=== PATIENT | male | born 1975 | race Caucasian/White ===

== ENCOUNTER 2020-03-26 04:29 | Emergency (ER) | payer SELFPAY ==
[2020-03-26 04:33] VITALS: BP 141/95; BP 159/91; PULSE 84; PULSE 90; RESP 16; TEMP 36.9; O2SAT 100; O2SAT 99; BMI 34.0
[2020-03-26 04:34] VITALS: BP 141/95; PULSE 85; RESP 16; TEMP 36.9; O2SAT 100
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
[2020-03-26] MEDS: Acetaminophen 325 MG TABLET 975 MG PO (05:00)
[2020-03-26] MEDS: Ketorolac Tromethamine 15 MG/ML VIAL IM (05:01)
[2020-03-26] MEDS: Cyclobenzaprine HCl 10 MG TABLET PO (05:07)
[2020-03-26] MEDS: Lidocaine 4 % Patch ADH..PATCH 1 PATCH TRANSDERMA (05:08)
[2020-03-26 06:04] LABS: Glucose Urine UA NEG (NEG); Leukocyte Esterase Urine NEG (NEG); Nitrite Urine NEG (NEG); Specific Gravity - Urine 1.025 (1.005-1.025); Urine Blood NEG (NEG); Urine Ketones NEG (NEG); Urine Protein NEG (NEG-TRACE)
[2020-03-26 06:09] LABS: Appearance Urine CLEAR; Color Urine YELLOW; UACC Culture Trigger NO
== END 2020-03-26 06:33 | disposition home or self-care (01) ==
PROVIDERS: Emergency Provider Student in an Organized Health Care Education/Training Program; PCP Internal Medicine
DX: M25.512 Pain in left shoulder (principal); Z79.899 Other long term (current) drug therapy; F12.90 Cannabis use, unspecified, uncomplicated
CPT/HCPCS: 73030; 81003; 99284; J1885

== ENCOUNTER → 2021-08-19 14:36 | Outpatient (BNVA) | payer SELFPAY | PROVIDERS: PCP Internal Medicine; Visit Provider Physician Assistant | DX: Z02.79 Encounter for issue of other medical certificate (principal) ==

== ENCOUNTER → 2022-08-11 14:37 | Outpatient (BNVA) | payer SELFPAY | PROVIDERS: PCP Nurse Practitioner Family; Visit Provider Physician Assistant | DX: Z02.79 Encounter for issue of other medical certificate (principal) ==

== ENCOUNTER 2022-12-14 14:26 | Outpatient (AMB) | payer BC, SELFPAY ==
--- NOTE | 2022-12-14 14:33 | A.OFFVIS_ITS ---
Intake Vital Signs 12/14/22 14:34 Height 5 ft 9 in Weight 289 lb BMI 42.7 BP 162/90 H Blood Pressure Location Lt brachial Position Standing Pulse 106 H Pulse Source Pulse Oximeter Pulse Oximetry (%) 98 Oxygen Delivery Method Room Air Intake Visit Reasons: Obstructive sleep apnea Intake Note: pt is here as a new patient for replacement c-pap from [facility]. 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 sleep study [facility] at [facility]. 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 HE IS KNOWN TO HAVE SEVERE OBSTRUCTIVE SLEEP APNEA FOR THE PAST 10-12 YEARS. POLYSOMNOGRAM STUDY PERFORMED FOR THE 1ST TIME AT [facility] ON 08/11/2011 IS REVIEWED AND INDEED HE HAD VERY SEVERE DEGREE OF OBSTRUCTIVE SLEEP APNEA WITH TOTAL SLEEP TIME AHI OF 89 PER HOUR REM AHI 120 PER PATIENT HAD CPAP TITRATION AND WAS TREATED WELL WITH PRESSURE OF 12 CM. PATIENT CLAIMS THAT SINCE 2011 HE HAS BEEN USING CPAP VERY REGULARLY. HE HAS FULL FACE MASK WHICH HE TOLERATES WELL. 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 HIS CPAP MACHINE IS QUITE OLD, AND DOES NOT HAVE CAPABILITY OF TRANSMITTING THE COMPLIANCE DATA. HE NEEDS NEW UP TO DATE MODEL OF CPAP DEVICE, WITH COMPLIANCE MONITORING CAPABILITY. THE PATIENT HAS BEEN MORBIDLY OBESE THROUGHOUT HIS ADULT LIFE. HE WAS INVOLVED IN, WEIGHT MANAGEMENT PROGRAM AND UNDERWENT GASTRIC SLEEVE MANY YEARS AGO. HE DID LOSE SOME WEIGHT, STILL REMAINING IN THE MORBID OBESITY RANGE. LATELY HE IS ACTUALLY PUTTING ON MORE WEIGHT. HE NEEDS TO USE THE CPAP OTHERWISE HE DOES NOT HAVE GOOD SLEEP. COUNTS INCLUDE 234 BEDS AT THE [facility] Medical History (Updated 12/14/22 @ 16:10 by Sariah Lowry MD) Morbid obesity Vitamin D deficiency Surgical History H/O gastric sleeve Family History Mother No problems noted. Father Myocardial infarction DVT (deep venous thrombosis) H/O heart artery stent Social History Housing: House Alcohol intake: never Patient Tobacco Use Status: Former Tobacco user Quit Date: 7 years ago Tobacco use type: Cigarette e-Cigarette/Vaping Use: Never Used Substance Use Type: Marijuana service: Yes Current occupational status: employed Review of Systems Const All systems reviewed & are unremarkable except as noted in HPI and below Eyes Reports no additional complaints ENT Reports no additional complaints Card Denies chest pain, Denies irregular heart rhythm, Denies leg edema and Denies dyspnea Resp Denies chest congestion, Denies cough, Denies dyspnea and Denies wheezing GI Reports no additional complaints Reports no additional complaints Musc Reports no additional complaints Skin/Breast Reports system reviewed and no additional complaints, except as documented Neuro Reports no additional complaints Psych Reports no additional complaints Endo Reports no additional complaints Kirit/Lymph Reports no additional complaints Aller/Immun Reports no additional complaints and Denies wheezing Physical Exam Vital Signs: Last Vital Signs Pulse 106 H 12/14/22 14:34 BP 162/90 H 12/14/22 14:34 Pulse Ox 98 12/14/22 14:34 Oxygen Delivery Method Room Air 12/14/22 14:34 BMI result Body Mass Index 42.7 Const General: healthy appearing (EXCEPT FOR BEING OVERWEIGHT), comfortable, no acute distress, alert and awake Orientation/consciousness: patient oriented x3 HEENT Head: Yes normal to inspection General nose exam: No nasal polyps present and No nasal discharge present Face and sinus: Yes sinuses nontender Mouth: oropharynx abnormals (OROPHARYNX IS CROWDED, MALLAMPATI CLASS 4) Throat: Yes posterior oropharynx normal Eyes General: appearance normal, both eyes and all related structures Neck Neck: Yes normal visual inspection, Yes no lymphadenopathy, Yes trachea midline, Yes no JVD and Yes other (NECK CIRCUMFERENCE 18 IN) Thyroid: Thyroid normal Resp Effort & Inspection: normal respiratory effort Auscultation: clear to auscultation bilaterally, no crackles and no wheezes Cardio Palpation: normal PMI Rate: regular rate Rhythm: regular rhythm Heart sounds: no gallops and no murmurs Peripheral pulses: Peripheral pulses 2+ throughout GI Palpation (GI): Soft to palpation, nontender, No hepatosplenomegaly present, no masses and Other GI palpation findings present (LARGE UMBILICAL HERNIA) Auscultation: normal bowel sounds Back/Spine/Pelvis Thoracic/Lumbar Spine: thoracic and lumbar spine normal to inspection and thoraco-lumbar ROM limited Skin General skin exam: no rashes or lesions noted Neuro General: patient oriented x3 and no focal motor deficits Cranial nerves: Yes CN's II-XII intact bilaterally Extrem General: Yes normal to inspection, Yes no clubbing, cyanosis or edema and Yes no calf tenderness Psych Appearance: grossly normal and well kempt Speech and movement: Normal speech and movement present Results Reviewed Results Reviewed: REPORT OF POLYSOMNOGRAM STUDY AT [facility] DATED 08/11/2011 WAS REVIEWED. RESULTS DISCUSSED WITH THE PATIENT. CONSISTENT WITH VERY SEVERE OBSTRUCTIVE SLEEP APNEA BUT RESPONDED WELL TO CPAP T TITRATION , PATIENT WAS ADVISED TO USE FULL FACE MASK. AND PRESSURE OF 12 CM Assessment & Plan Assessment & Plan (1) Morbid obesity: Comment: PATIENT HAS HAD MORBID OBESITY THROUGHOUT HIS ADULT LIFE. HE HAS HAD GASTRIC SLEEVE WHICH HELPED HIM TO LOSE WEIGHT FOR A FEW YEARS THEN THEN HE HAS REGAINED THE WEIGHT. ADVISED TO JOIN THE WEIGHT MANAGEMENT PROGRAM AGAIN. Code(s): E66.01 - Morbid (severe) obesity due to excess calories (2) Obstructive sleep apnea: Comment: SEVERE OBSTRUCTIVE SLEEP APNEA UNKNOWN SINCE 2011. HAS BEEN USING CPAP REGULARLY. CURRENTLY HIS CPAP DEVICE IS OLD AND NOT ABLE TO TRANSMIT THE COMPLIANCE DATA. PATIENT NEEDS A NEW, UPDATED WERE BECK OF CPAP DEVICE. SETTING WILL BE : FULLFACE MASK WITH PRESSURE OF 12 CM. Code(s): G47.33 - Obstructive sleep apnea (adult) (pediatric) Coding Level of Care Code New Pt Level 3 (43308) Diagnoses Morbid obesity E66.01 Obstructive sleep apnea G47.33
[2022-12-14 14:34] VITALS: BP 162/90; PULSE 106; O2SAT 98; BMI 42.7
== END 2022-12-14 15:02 | disposition home or self-care (01) ==
PROVIDERS: PCP Nurse Practitioner Family; Visit Provider Internal Medicine
DX: E66.01 Morbid (severe) obesity due to excess calories (principal); G47.33 Obstructive sleep apnea (adult) (pediatric)
CPT/HCPCS: 99203

== ENCOUNTER → 2022-12-14 14:26 | Outpatient (BNVA) | payer BC, SELFPAY | PROVIDERS: PCP Nurse Practitioner Family; Visit Provider Internal Medicine ==

== ENCOUNTER 2022-12-30 14:26 | Outpatient (AMB) | payer BC, SELFPAY ==
[2022-12-30 14:27] VITALS: BP 148/100; PULSE 92; O2SAT 98; BMI 42.1
--- NOTE | 2022-12-30 14:27 | A.OFFPC_ITS ---
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 Allergies No Known Allergies [No Known Allergies*] Allergy (Verified 12/30/22 14:31) Tobacco use date assessed: 12/30/22 Dental Screening Dental Screen Date: 12/30/22 Did you have a dental visit in the last 12 months?: Yes Did you have a dental problem in the last 6 months where you did not have access to dental care?: No Was dental information given to patient?: Patient has dentist HPI HPI Comments History of Present Illness Details 47-year-old male past medical history significant for hypertension, hypertriglyceridemia, vitamin-D deficiency, lumbar degenerative disc disease, obstructive sleep apnea and dyslipidemia.Patient presents today for physical exam. Patient states used his cpap nightly with good effect. Patient b/p elevated in office today 148/100 and noted elveated at pulmonolgy appointment earlier this month 162/90. Patient denies chest pain, palpitations, shortness of breath and syncope. Patient reports was previously on blood pressure medication years ago, but it was able to be D/C'd. Past records looked up patient was previously on atenolol 20 mg daily. Discussed with patient restarting this medication and following up in 2 weeks with navigation or stab blood pressure a checked. Colonoscopy:patient states has never had colonoscopy, Referral entered in september Tdap: 07/14/17 Eye Exam: Couple of months ago, patient now requiring glasses. Patient reminded to get previously ordered fasting blood work completed. ? [facility] Medical History Morbid obesity Vitamin D deficiency Surgical History H/O gastric sleeve Family History Mother No problems noted. Father Myocardial infarction DVT (deep venous thrombosis) H/O heart artery stent Social History Housing: House Alcohol intake: never Patient Tobacco Use Status: Former Tobacco user Quit Date: 7 years ago Tobacco use type: Cigarette e-Cigarette/Vaping Use: Never Used Substance Use Type: Marijuana service: Yes Current occupational status: employed Cognitive needs: No Hearing needs: No Vision needs: No Questionnaire PHQ-9 Over the last 2 weeks, how often have you been bothered by any of the following problems? 1. Little interest or pleasure in doing things: not at all 2. Feeling down, depressed, or hopeless: nearly every day 3. Trouble falling or staying asleep, or sleeping too much: not at all 4. Feeling tired or having little energy: not at all 5. Poor appetite or overeating: not at all 6. Feeling bad about yourself - or that you are a failure or have let yourself or your family down: not at all 7. Trouble concentrating on things, such as reading the newspaper or watching television: not at all 8. Moving or speaking so slowly that other people could have noticed. Or the opposite - being so fidgety or restless that you have been moving around a lot more than usual: not at all 9. Thoughts that you would be better off or of hurting yourself in some way: not at all Total score: 3 Depression Screening Interpretation: Positive [id number] - PHQ-9 Billing: Yes Source: Developed by Drs. Satnam Mchugh, Isabella Jackson, Brain Spence and colleagues, with an educational luciana from [employer]. Thrive Questionnaire Date Thrive assessed: 12/30/22 I am a: Patient What is your living situation today?: I have a steady place to live Within the past 12 months, did the food you bought not last and you didn't have the money to get more?: Never true Within the past 12 months, did you worry whether your food would run out before you got money to buy more?: Never true Do you have trouble paying for medicines?: No Do you have trouble getting transportation to medical appointments?: No Do you have trouble paying your heating and electricity bill?: No Do you have trouble taking care of your child, family member or friend?: No Do you have trouble with day-to-day activities such as bathing, preparing meals, shopping, managing finances, etc.?: No AUDIT C Alcohol Use Questionnaire (AUDIT-C) 1. How often do you have a drink containing alcohol?: Never Total Score: 0 PRINCESS-7 AMB Questionnaire PRINCESS-7 Date PRINCESS - 7 assessed: 12/30/22 Feeling nervous, anxious, or on edge: 3 = Nearly every day Not being able to stop or control worryin = Nearly every day Worrying too much about different things: 3 = Nearly every day Trouble relaxin = Not at all Being so restless that it is hard to sit still: 0 = Not at all Becoming easily annoyed or irritable: 3 = Nearly every day Feeling afraid as if something awful might happen: 0 = Not at all Total PRINCESS-7 score (0-4 normal; 5-9 mild; 10-14 moderate; 15-21 severe): 12 Source: Developed by Drs. Satnam Mchugh, Isabella Jackson, Brain Spence and colleagues, with an educational luciana from [employer]. PRINCESS-7 Assessment Billing PRINCESS-7 Assessment Tool: PRINCESS-7 Assessment [id number] Review of Systems Const Denies chills, Denies fatigue, Denies fever(s) and Denies poor appetite Eyes Denies no additional complaints ENT Reports Normal hearing present Card Denies chest pain, Denies syncope, Denies rapid heart rate and Denies dyspnea Resp Denies cough and Denies dyspnea GI Denies change in stool character, Denies constipation, Denies diarrhea, Denies nausea and Denies vomiting Denies dysuria, Denies urinary frequency and Denies urinary urgency Neuro Reports Normal hearing present, Denies confusion and Denies syncope Psych Denies confusion Endo Denies fatigue Physical exam (Primary Care) Vital Signs: Last Vital Signs Pulse 92 12/30/22 14:27 BP 148/100 H 12/30/22 14:27 Pulse Ox 98 12/30/22 14:27 Oxygen Delivery Method Room Air 12/30/22 14:27 BMI result Body Mass Index 42.1 Tobacco/Smoking Status: Tobacco use Status Tobacco use date assessed 12/30/22 12/30/22 14:35 Patient Tobacco Use Status Former Tobacco user 12/30/22 14:35 Tobacco use type Cigarette 12/30/22 14:35 e-Cigarette/Vaping Use Never Used 12/30/22 14:35 PHQ-9: PHQ-9 Score PHQ-9: Total score 3 12/30/22 14:35 Depression Screening Interpretation: Positive Thrive Assessment: Date of Thrive Assessment Date Thrive assessed 12/30/22 12/30/22 14:35 Const General: No confusion Orientation/consciousness: No confusion HENMT Head: Yes normocephalic and Yes atraumatic Ears: external ears normal and TM's normal bilaterally General nose exam: Normal external nose present and Normal nasal mucous membranes and turbinates present Face and sinus: Yes normal facial exam and Yes sinuses nontender Mouth: moist mucous membranes Throat: Yes tonsils normal Eyes Conjunctivae: conjunctivae normal Sclerae: sclerae normal Pupils: Equal, round and reactive pupils present and Pupils normal by confrontation EOM: EOMs intact bilaterally Direct Ophthalmoscopy: normal light reflex Neck Neck: Yes no lymphadenopathy and Yes supple Thyroid: Thyroid normal Chest Chest palpation & inspection: normal inspection of the chest Resp Effort & Inspection: normal respiratory effort Auscultation: clear to auscultation bilaterally, no crackles, no rhonchi and no wheezes Cardio Rate: regular rate Rhythm: regular rhythm Peripheral pulses: radial pulses present and dorsalis pedis present GI Inspection: Yes normal to inspection Palpation (GI): Soft to palpation, nontender and No hepatosplenomegaly present Auscultation: normoactive bowel sounds Skin General skin exam: no rashes or lesions noted Neuro General: No confusion Cranial nerves: Yes Equal, round and reactive pupils present and Yes Normal hearing present Cognition (Neuro): normal cognition Gait exam (Neuro): Normal gait present Motor exam (neuro): 5/5 motor strength present throughout Deep tendon reflexes (DTR's): Right brachioradialis reflex intensity grade: 2+, Left brachioradialis reflex intensity grade: 2+, Right patellar reflex intensity grade: 2+ and Left patellar reflex intensity grade: 2+ Extrem General: No edema Assessment and Plan Assessment & Plan (1) Hypertension: Code(s): I10 - Essential (primary) hypertension Plan: Patient agreeable to restarting atenolol 25 mg daily. Follow low-salt diet and exercise. Follow-up in 2 weeks and navigation nurse for blood pressure recheck. (2) Obstructive sleep apnea: Comment: SEVERE OBSTRUCTIVE SLEEP APNEA UNKNOWN SINCE 2011. HAS BEEN USING CPAP REGULARLY. CURRENTLY HIS CPAP DEVICE IS OLD AND NOT ABLE TO TRANSMIT THE COMPLIANCE DATA. PATIENT NEEDS A NEW, UPDATED WERE BECK OF CPAP DEVICE. SETTING WILL BE : FULLFACE MASK WITH PRESSURE OF 12 CM. Code(s): G47.33 - Obstructive sleep apnea (adult) (pediatric) Plan: Continue to follow with pulmonology. Continue wear CPAP for greater than 4 hours a night with good effect. Patient reports in the process of getting a new CPAP machine. (3) Dyslipidemia: Code(s): E78.5 - Hyperlipidemia, unspecified Plan: Patient advised to get fasting lipid panel completed. Follow low-cholesterol diet. (4) Morbid obesity: Comment: PATIENT HAS HAD MORBID OBESITY THROUGHOUT HIS ADULT LIFE. HE HAS HAD GASTRIC SLEEVE WHICH HELPED HIM TO LOSE WEIGHT FOR A FEW YEARS THEN THEN HE HAS REGAINED THE WEIGHT. ADVISED TO JOIN THE WEIGHT MANAGEMENT PROGRAM AGAIN. Code(s): E66.01 - Morbid (severe) obesity due to excess calories Plan: Diet and exercise to reduce BMI. (5) Physical exam, annual: Code(s): Z00.00 - Encounter for general adult medical examination without abnormal findings Plan: Follow up in 1 year. Plan Follow up in 3 months Medications: New atenolol 25 mg PO DAILY 30 tabs 3RF I10 - Essential (primary) hypertension Coding Level of Care Code Est Pt Prev Care 40-64y(34080) Diagnoses Hypertension I10 Obstructive sleep apnea G47.33 Dyslipidemia E78.5 Morbid obesity E66.01 Physical exam, annual Z00.00 Additional Codes PRINCESS-7 Assessment Billing - PRINCESS-7 Assessment Tool: PRINCESS-7 Assessment [id number] ([id number])
== END 2022-12-30 15:02 | disposition home or self-care (01) ==
PROVIDERS: PCP Nurse Practitioner Family; Visit Provider Nurse Practitioner Family
DX: Z00.00 Encounter for general adult medical examination without abnormal findings (principal); I10 Essential (primary) hypertension; E66.01 Morbid (severe) obesity due to excess calories; Z68.41 Body mass index [BMI] 40.0-44.9, adult; G47.33 Obstructive sleep apnea (adult) (pediatric); E78.5 Hyperlipidemia, unspecified
CPT/HCPCS: 99396

== ENCOUNTER 2022-12-31 08:45 | Outpatient (REF) | payer BC, SELFPAY ==
[2022-12-31 09:15] LABS: MANUAL DIFF FLAG NO
[2022-12-31 09:48] LABS: Basophils Absolute Auto 0.1 X10*3/uL (0.0-0.2); Basophils Percent Auto 0.6 % (0-2); Eosinophils Absolute Auto 0.2 X10*3/uL (0.0-0.4); Eosinophils Percent Auto 2.8 % (0-4); Hematocrit 46.8 % (42.0-52.0); Hemoglobin 15.9 g/dl (14.0-18.0); Imm Gran Abs Auto 0.04 X10*3/uL (0.00-0.03); Imm Gran Pct Auto 0.5 % (0.0-0.4); Lymphocytes Absolute Auto 2.8 X10*3/uL (1.2-4.9); Lymphocytes Percent Auto 36.2 % (20-40); Mean Corpuscular Hemoglobin 27.9 pg (27.0-33.0); Mean Corpuscular Volume 82.1 fL (80.0-98.0); Mean Platelet Volume 9.3 fL (9.4-12.4); Monocytes Absolute Auto 0.6 X10*3/uL (0.1-1.2); Monocytes Percent Auto 7.7 % (2-11); Neutrophils Percent Auto 52.2 % (45-73); Platelet Count 285 X10*3/uL (160-400); Red Cell Distribution Width 12.8 % (11.0-16.0); White Blood Count 7.8 X10*3/uL (4.8-10.8)
[2022-12-31 10:29] LABS: Alanine Aminotransferase 19 U/L (0-40); Albumin Level 4.3 g/dL (3.5-5.0); Alkaline Phosphatase 86 U/L (39-117); Anion Gap 17 (12-20); Aspartate Amino Transferase 13 U/L (5-37); Bilirubin Total 0.9 mg/dL (0.0-1.0); Blood Urea Nitrogen 9 mg/dL (9-16); Calcium 9.6 mg/dL (8.4-10.2); Carbon Dioxide 21 mmol/L (22-29); Chloride 105 mmol/L (96-108); Cholesterol 162 mg/dL; Estimated Glomerular Filt Rate > 60; Glucose Random 98 mg/dL (60-115); HDL Cholesterol 40 mg/dL; LDL Cholesterol Calculated 98 mg/dl; Potassium 4.1 mmol/L (3.3-5.1); Sodium 139 mmol/L (135-145); Total Protein 7.7 g/dL (6.5-8.0); Triglycerides 120 mg/dL
[2022-12-31 10:47] LABS: TSH reflex Free T4 1.18 uIU/mL (0.32-4.0)
== END 2022-12-31 08:46 | disposition home or self-care (01) ==
LOC: HO.LAB 08:45
PROVIDERS: PCP Internal Medicine; Visit Provider Nurse Practitioner Family
DX: E78.5 Hyperlipidemia, unspecified (principal); Z13.29 Encounter for screening for other suspected endocrine disorder; Z13.0 Encounter for screening for diseases of the blood and blood-forming organs and certain disorders involving the immune mechanism; Z13.220 Encounter for screening for lipoid disorders
CPT/HCPCS: 36415; 80053; 80061; 84443; 85025

== ENCOUNTER 2023-04-17 14:19 | Outpatient (AMB) | payer BC, SELFPAY ==
--- NOTE | 2023-04-17 14:23 | A.OFFPC_ITS ---
Vital Signs 04/17/23 14:25 Height 5 ft 9 in Weight 288 lb BMI 42.5 BP 118/74 Blood Pressure Location Lt brachial Position Sitting Pulse 67 Pulse Source Pulse Oximeter Pulse Oximetry (%) 98 Oxygen Delivery Method Room Air Intake Visit Reasons: HTN, dyslipidemia,KRISTOFER Intake Note: Patient is here to follow up on HTN, KRISTOFER, Dyslipidemia. Rn Relief Charge Required: No Data Modeling Specialist: Not Required per policy Accompanied by: Self / Same As Patient Allergies No Known Allergies [No Known Allergies*] Allergy (Verified 04/17/23 14:25) Tobacco use date assessed: 04/17/23 Dental Screening Dental Screen Date: 04/17/23 Did you have a dental visit in the last 12 months?: Yes Did you have a dental problem in the last 6 months where you did not have access to dental care?: No Was dental information given to patient?: Patient has dentist HPI HPI Comments History of Present Illness Details 48-year-old male past medical history si gnificant for hypertension, hypertriglyceridemia, vitamin-D deficiency, lumbar degenerativedisc disease, obstructive sleep apnea and dyslipidemia. Patient was seen in December, presents today for follow-up appointment. Blood pressure below goal in office today. Patient continues to use CPAP for greater than 4 hours a night with good effect. Patient follows with pulmonology. Patient enquiring about Ozempic injections for weight loss management. Patient history of laparoscopic sleeve gastrectomy in 2019, however he has gained the weight back BMI 42.5 kg. Discussed potential side effects with patient of medication, especially once more tired to patients with history of laparoscopic sleeve gastrectomy such as nausea and delayed gastric emptying. [facility] Medical History Morbid obesity Vitamin D deficiency Surgical History H/O gastric sleeve Family History Mother No problems noted. Father Myocardial infarction DVT (deep venous thrombosis) H/O heart artery stent Social History Housing: House Alcohol intake: never Patient Tobacco Use Status: Former Tobacco user Quit Date: 7 years ago Tobacco use type: Cigarette e-Cigarette/Vaping Use: Never Used Second Hand Smoke Exposure: No Substance Use Type: Marijuana service: Yes Current occupational status: employed Cognitive needs: No Hearing needs: No Vision needs: Yes (glasses) Questionnaire Thrive Questionnaire Date Thrive assessed: 12/30/22 PRINCESS-7 AMB Questionnaire PRINCESS-7 Date PRINCESS - 7 assessed: 12/30/22 Source: Developed by Drs. Satnam Mchugh, Isabella Jackson, Brain Spence and colleagues, with an educational luciana from [employer]. Review of Systems Const Denies chills, Denies fatigue, Denies fever(s) and Denies poor appetite Eyes Denies no additional complaints ENT Reports Normal hearing present Card Denies chest pain, Denies syncope, Denies rapid heart rate and Denies dyspnea Resp Denies cough and Denies dyspnea GI Denies change in stool character, Denies constipation, Denies diarrhea, Denies nausea and Denies vomiting Denies dysuria, Denies urinary frequency and Denies urinary urgency Neuro Reports Normal hearing present, Denies confusion and Denies syncope Psych Denies confusion Endo Denies fatigue Physical exam (Primary Care) BMI result Body Mass Index 42.5 Tobacco/Smoking Status: Tobacco use Status Tobacco use date assessed 04/17/23 04/17/23 14:26 Patient Tobacco Use Status Former Tobacco user 04/17/23 14:26 Tobacco use type Cigarette 04/17/23 14:26 e-Cigarette/Vaping Use Never Used 04/17/23 14:26 Thrive Assessment: Date of Thrive Assessment Date Thrive assessed 12/30/22 04/17/23 14:26 Const General: No confusion Orientation/consciousness: No confusion HENMT Head: Yes normocephalic and Yes atraumatic Eyes Conjunctivae: conjunctivae normal Chest Chest palpation & inspection: normal inspection of the chest Resp Effort & Inspection: normal respiratory effort Auscultation: clear to auscultation bilaterally, no crackles, no rhonchi and no wheezes Cardio Rate: regular rate Rhythm: regular rhythm Heart sounds: S1 normal heart sound present and S2 normal heart sound present GI Inspection: Yes normal to inspection Neuro General: No confusion Cranial nerves: Yes Normal hearing present Extrem General: No edema Assessment and Plan Assessment & Plan (1) Hypertension: Code(s): I10 - Essential (primary) hypertension Plan: Continue on atenolol 25 mg daily. Follow low-salt diet and exercise. (2) Obstructive sleep apnea: Comment: SEVERE OBSTRUCTIVE SLEEP APNEA UNKNOWN SINCE 2011. HAS BEEN USING CPAP REGULARLY. CURRENTLY HIS CPAP DEVICE IS OLD AND NOT ABLE TO TRANSMIT THE COMPLIANCE DATA. PATIENT NEEDS A NEW, UPDATED WERE BECK OF CPAP DEVICE. SETTING WILL BE : FULLFACE MASK WITH PRESSURE OF 12 CM. Code(s): G47.33 - Obstructive sleep apnea (adult) (pediatric) Plan: Patient reports wear CPAP 8 hours a night and benefits from this. Continue to follow-up pulmonology. (3) Dyslipidemia: Code(s): E78.5 - Hyperlipidemia, unspecified Plan: Will repeat fasting lipid panel in 3 months. Avoid fried foods, chicken skin, eggs, butter,margarine, pastries and?? red meat. Plan Follow-up in 6 months or sooner if needed. Orders: Orders Lipid Panel Today E78.5 - Hyperlipidemia, unspecified Comprehensive [place]. Panel Fast Today E78.5 - Hyperlipidemia, unspecified, I10 - Essential (primary) hypertension Coding Level of Care Code Est Pt Level 3 (81593) Diagnoses Hypertension I10 Obstructive sleep apnea G47.33 Dyslipidemia E78.5
[2023-04-17 14:25] VITALS: BP 118/74; PULSE 67; O2SAT 98; BMI 42.5
== END 2023-04-17 14:47 | disposition home or self-care (01) ==
PROVIDERS: PCP Nurse Practitioner Family; Visit Provider Nurse Practitioner Family
DX: I10 Essential (primary) hypertension (principal); G47.33 Obstructive sleep apnea (adult) (pediatric); E78.5 Hyperlipidemia, unspecified
CPT/HCPCS: 99213

== ENCOUNTER → 2023-08-10 14:48 | Outpatient (BNVA) | payer SELFPAY | PROVIDERS: PCP Internal Medicine; Visit Provider Physician Assistant Medical | DX: Z02.79 Encounter for issue of other medical certificate (principal) ==

== ENCOUNTER 2023-10-16 14:40 | Outpatient (AMB) | payer BC, SELFPAY ==
[2023-10-16 14:42] VITALS: BP 150/102; PULSE 88; O2SAT 98; BMI 43.1
--- NOTE | 2023-10-16 14:42 | A.OFFPC_ITS ---
Vital Signs 10/16/23 14:42 10/16/23 15:35 Height 5 ft 9 in Weight 292 lb BMI 43.1 BP 150/102 H 160/104 H Blood Pressure Location Lt brachial Lt brachial Position Sitting Sitting Pulse 88 Pulse Source Pulse Oximeter Pulse Oximetry (%) 98 Oxygen Delivery Method Room Air Intake Visit Reasons: HTN, KRISTOFER, HLD Follow up [employer] Crewmember Required: No Account Services Coordinator: Not Required per policy Accompanied by: Self / Same As Patient Allergies No Known Allergies [No Known Allergies*] Allergy (Verified 03/03/24 16:33) Medication List - Last Reconciled 10/16/23 by Zuhair Almaguer MD atenolol 25 mg PO DAILY Tobacco use date assessed: 10/16/23 Dental Screening Dental Screen Date: 10/16/23 Did you have a dental visit in the last 12 months?: Yes Did you have a dental problem in the last 6 months where you did not have access to dental care?: No Was dental information given to patient?: Patient has dentist HPI HTN, KRISTOFER, HLD Follow up HPI Details Patient comes in today for his follow up visit - was last seen by me almost 5 years ago on 03/29/2019 He has been seeing Kayla Walton, who is no longer with the practice, over the past year when he came back last year to reestablish care States that he has been experiencing increased anxiety lately and he thinks that this is also causing his blood pressure to go up He has been on Atenolol for a while now but he does not think that it has helped his blood pressure much He denies any headaches or dizziness Denies any chest pains, no SOB No nausea/vomiting, no abdominal pain No change in bowel habits noted [facility] Medical History (Updated 03/03/24 @ 16:50 by Zuhair Almaguer MD) Morbid obesity with BMI of 40.0-44.9, adult Lumbar degenerative disc disease Renal calculus, left Obstructive sleep apnea Essential hypertension Morbid obesity Vitamin D deficiency Surgical History (Updated 03/03/24 @ 16:43 by Zuhair Almaguer MD) S/P laparoscopic sleeve gastrectomy H/O gastric sleeve Family History (Updated 03/03/24 @ 16:43 by Zuhair Almaguer MD) Mother Hypertension Father Myocardial infarction DVT (deep venous thrombosis) H/O heart artery stent Hypertension Diabetes mellitus Social History Housing: House Alcohol intake: never Patient Tobacco Use Status: Former Tobacco user Tobacco use type: Cigarette e-Cigarette/Vaping Use: Never Used Second Hand Smoke Exposure: No Substance Use Type: Marijuana service: Yes Current occupational status: employed 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 1. Little interest or pleasure in doing things: several days 2. Feeling down, depressed, or hopeless: nearly every day 3. Trouble falling or staying asleep, or sleeping too much: not at all 4. Feeling tired or having little energy: several days 5. Poor appetite or overeating: several days 6. Feeling bad about yourself - or that you are a failure or have let yourself or your family down: nearly every day 7. Trouble concentrating on things, such as reading the newspaper or watching television: not at all 8. Moving or speaking so slowly that other people could have noticed. Or the opposite - being so fidgety or restless that you have been moving around a lot more than usual: nearly every day 9. Thoughts that you would be better off or of hurting yourself in some way: not at all Total score: 12 Depression Screening Interpretation: Positive Depression Screening Follow-up: Existing condition and New Medication prescribed Depression Screening Done: Yes 49169 - PHQ-9 Billing: Yes Source: Developed by Drs. Satnam Mchugh, Isabella Jackson, Brain Spence and colleagues, with an educational luciana from [employer]. Thrive Questionnaire Date Thrive assessed: 10/16/23 I am a: Patient What is your living situation today?: I have a steady place to live Within the past 12 months, did the food you bought not last and you didn't have the money to get more?: Never true Within the past 12 months, did you worry whether your food would run out before you got money to buy more?: Never true Do you have trouble paying for medicines?: No Do you have trouble getting transportation to medical appointments?: No Do you have trouble paying your heating and electricity bill?: No Do you have trouble taking care of your child, family member or friend?: No Do you have trouble with day-to-day activities such as bathing, preparing meals, shopping, managing finances, etc.?: No Are you currently unemployed and looking for a job?: No Are you interested in more education?: No Please select the resources that you would like help with: None Currently or been in a relationship where the following occur: no concerns reported THRIVE Score: 0 AUDIT C Alcohol Use Questionnaire (AUDIT-C) 1. How often do you have a drink containing alcohol?: Never 3. How often do you have six or more drinks on one occasion?: Never Total Score: 0 Score Reviewed/Action Taken: Yes PRINCESS-7 AMB Questionnaire PRINCESS-7 Date PRINCESS - 7 assessed: 10/16/23 Feeling nervous, anxious, or on edge: 0 = Not at all Not being able to stop or control worryin = Not at all Worrying too much about different things: 0 = Not at all Trouble relaxin = Not at all Being so restless that it is hard to sit still: 0 = Not at all Becoming easily annoyed or irritable: 0 = Not at all Feeling afraid as if something awful might happen: 0 = Not at all Total PRINCESS-7 score (0-4 normal; 5-9 mild; 10-14 moderate; 15-21 severe): 0 Source: Developed by Drs. Satnam Mchugh, Isabella Jackson, Brain Spence and colleagues, with an educational luciana from [employer]. Review of Systems Const Denies chills, Denies fatigue, Denies fever(s) and Denies headache(s) ENT Denies dysphagia, Denies dizziness, Denies otalgia, Denies headache(s), Denies neck pain, Denies odynophagia and Denies sore throat Card Denies chest pain, Denies palpitations and Denies dyspnea Resp Denies cough and Denies dyspnea GI Denies abdominal pain, Denies constipation, Denies dysphagia, Denies heartburn, Denies diarrhea, Denies nausea, Denies odynophagia and Denies vomiting Denies dysuria, Denies nocturia and Denies urinary frequency Musc Reports back pain (over the lower back), Denies arthralgias and Denies neck pain Skin/Breast Denies rash Neuro Denies dizziness and Denies headache(s) Psych Reports anxiety Endo Denies fatigue and Denies palpitations Physical exam (Primary Care) Vital Signs: Last Vital Signs Pulse 88 10/16/23 14:42 BP 160/104 H 10/16/23 15:35 Pulse Ox 98 10/16/23 14:42 Oxygen Delivery Method Room Air 10/16/23 14:42 BMI result Body Mass Index 43.1 Tobacco/Smoking Status: Tobacco use Status Tobacco use date assessed 10/16/23 10/16/23 14:44 Patient Tobacco Use Status Former Tobacco user 10/16/23 14:44 Tobacco use type Cigarette 10/16/23 14:44 e-Cigarette/Vaping Use Never Used 10/16/23 14:44 PHQ-9: PHQ-9 Score PHQ-9: Total score 12 10/16/23 15:43 Depression Screening Interpretation: Positive Depression Screening Follow-up: Existing condition and New Medication prescribed Thrive Assessment: Date of Thrive Assessment Date Thrive assessed 10/16/23 10/16/23 14:44 Currently or been in a relationship where the following occur: no concerns reported Const General: no acute distress and alert HENMT Ears: TM's normal bilaterally and EAC's normal Throat: Yes posterior oropharynx normal and Yes tonsils normal (no TP congestion) Neck Neck: Yes no lymphadenopathy and Yes supple Thyroid: Thyroid normal Resp Auscultation: clear to auscultation bilaterally, no rales and no wheezes Cardio Rate: regular rate Rhythm: regular rhythm Heart sounds: no murmurs GI Palpation (GI): Soft to palpation and nontender Auscultation: normal bowel sounds General: Yes no CVA tenderness Back/Spine/Pelvis Back: no CVA tenderness Thoracic/Lumbar Spine: lumbar spinal tenderness (mild) Skin Rashes: no rashes Extrem General: Yes no clubbing, cyanosis or edema Assessment and Plan Assessment & Plan (1) Essential hypertension: Code(s): I10 - Essential (primary) hypertension Plan: Reinforced low sodium diet - goal is systolic BP of 120 mm or less Will switch him out from Atenolol to Losartan 50 mg QD Patient is reminded to continue monitoring his blood pressure regularly (2) Dyslipidemia: Code(s): E78.5 - Hyperlipidemia, unspecified Plan: He has not had any labs done since December 2022 Reinforced low cholesterol diet Will recheck his labs and fasting lipids in 3 months for follow up (3) Obstructive sleep apnea: Comment: SEVERE OBSTRUCTIVE SLEEP APNEA UNKNOWN SINCE 2011. HAS BEEN USING CPAP REGULARLY. CURRENTLY HIS CPAP DEVICE IS OLD AND NOT ABLE TO TRANSMIT THE COMPLIANCE DATA. PATIENT NEEDS A NEW, UPDATED WERE BECK OF CPAP DEVICE. SETTING WILL BE : FULLFACE MASK WITH PRESSURE OF 12 CM. Code(s): G47.33 - Obstructive sleep apnea (adult) (pediatric) Plan: Continue using his CPAP device when sleeping at night Follow up with Sleep Medicine as scheduled (4) Vitamin D deficiency: Code(s): E55.9 - Vitamin D deficiency, unspecified Plan: Will recheck his Vitamin D level in 3 months for follow up (5) Lumbar degenerative disc disease: Code(s): M51.36 - Other intervertebral disc degeneration, lumbar region Plan: Reinforced activity and weight-lifting restrictions to avoid aggravating his low back pain Lumbar spine x-rays last done in 2018 revealed (+) mild degenerative changes at L4-L5 and L5-S1 (6) Anxiety: Code(s): F41.9 - Anxiety disorder, unspecified Plan: Will start him on Sertraline 25 mg QD Will also refer him to psychiatry for counseling and therapy (7) Morbid obesity with BMI of 40.0-44.9, adult: Code(s): E66.01 - Morbid (severe) obesity due to excess calories; Z68.41 - Body mass index [BMI] 40.0-44.9, adult Plan: Reinforced activity and weight-lifting restrictions He has failed bariatric surgery (has sleeve gastrectomy in 2019) and has been advised to try checking back with Dr. Pavon for further recommendations Plan Follow up in 3 months Orders: Orders Comprehensive [place]. Panel Fast 3 Months E78.00 - Pure hypercholesterolemia, unspecified UA CC w/rflx Micro + Cult 3 Months R30.0 - Dysuria Vitamin D 25-OH Total 3 Months E55.9 - Vitamin D deficiency, unspecified Complete Blood Count Auto Diff 3 Months D64.9 - Anemia, unspecified Lipid Panel 3 Months E78.00 - Pure hypercholesterolemia, unspecified TSH reflex Free T4 3 Months E78.00 - Pure hypercholesterolemia, unspecified Referrals Psychiatry Referral F41.9 - Anxiety disorder, unspecified Medications: New sertraline 25 mg PO DAILY 90 tabs 1RF 90 days losartan 50 mg PO DAILY 90 tabs 1RF 90 days I10 - Essential (primary) hypertension Discontinued atenolol Discontinued Reason: Doctor's Order 25 mg PO DAILY 90 tabs 1RF I10 - Essential (primary) hypertension Coding Level of Care Code Est Pt Level 4 (59015) Diagnoses Essential hypertension I10 Dyslipidemia E78.5 Obstructive sleep apnea G47.33 Vitamin D deficiency E55.9 Lumbar degenerative disc disease M51.36 Anxiety F41.9 Morbid obesity with BMI of 40.0-44.9, adult E66.01; Z68.41
[2023-10-16 15:35] VITALS: BP 160/104
== END 2023-10-16 15:46 | disposition home or self-care (01) ==
PROVIDERS: PCP Internal Medicine; Visit Provider Internal Medicine
DX: I10 Essential (primary) hypertension (principal); E78.5 Hyperlipidemia, unspecified; G47.33 Obstructive sleep apnea (adult) (pediatric); E55.9 Vitamin D deficiency, unspecified; M51.36 Other intervertebral disc degeneration, lumbar region; F41.9 Anxiety disorder, unspecified; E66.01 Morbid (severe) obesity due to excess calories; Z68.41 Body mass index [BMI] 40.0-44.9, adult
CPT/HCPCS: 99499

== ENCOUNTER 2024-01-02 15:01 | Outpatient (AMB) | payer OTHER, BC, SELFPAY ==
--- NOTE | 2024-01-02 15:18 | AM.OFFWIN_ITS ---
Intake Vital Signs 01/02/24 15:19 Height 5 ft 9 in Weight 285 lb BMI 42.1 BP 118/78 Blood Pressure Location Lt radial Position Sitting Pulse 91 Pulse Source Pulse Oximeter Temp 98.3 F Temp Source Oral Pulse Oximetry (%) 98 Oxygen Delivery Method Room Air Intake Visit Reasons: left knee - injured at work Intake Note: pt c/o LT knee pain. Hyper-extended at work this morning Patient Tobacco Use Status: Former Tobacco user Allergies No Known Allergies [No Known Allergies*] Allergy (Verified 01/02/24 15:18) Do you need a note to return to daycare/school/sports/work: Yes HPI HPI Comments History of Present Illness Details 48-year-old male presents today complain ing of left knee pain after a fall at work. He has pain on the medial aspect of his knee has a moderate effusion and hears crunching in his knee. He is able to ambulate but feels a little unsteady. [facility] Medical History (Updated 01/02/24 @ 15:40 by BLAKE Hernandez) Essential hypertension Morbid obesity Vitamin D deficiency Surgical History H/O gastric sleeve Family History Mother No problems noted. Father Myocardial infarction DVT (deep venous thrombosis) H/O heart artery stent Social History Housing: House Alcohol intake: never Patient Tobacco Use Status: Former Tobacco user Tobacco use type: Cigarette e-Cigarette/Vaping Use: Never Used Second Hand Smoke Exposure: No Substance Use Type: Marijuana service: Yes Current occupational status: employed Cognitive needs: No Hearing needs: No Vision needs: Yes (glasses) Review of Systems Const All systems reviewed & are unremarkable except as noted in HPI and below Physical Exam Const General: healthy appearing and no acute distress Extrem General: Yes edema Left lower extremity: knee Details: abnormal to inspection, tenderness, swelling, abnormal ROM and knee ligament exam abnormal Details: valgus stress test Assessment & Plan Assessment & Plan (1) Medial collateral ligament sprain of knee: Code(s): S83.419A - Sprain of medial collateral ligament of unspecified knee, initial encounter Plan: The patient was given a hinged brace for stability. I ordered orthopedic referral. Also gave him a note for work to limit driving lifting until orthopedic evaluation Plan See plan Orders: Referrals Orthopedics Referral M25.562 - Pain in left knee, S83.419A - Sprain of medial collateral ligament of unspecified knee, initial encounter Coding Level of Care Code Est Pt Level 3 (11281) Diagnoses Medial collateral ligament sprain of knee S83.419A
[2024-01-02 15:19] VITALS: BP 118/78; PULSE 91; TEMP 36.8; O2SAT 98; BMI 42.1
== END 2024-01-02 16:18 | disposition home or self-care (01) ==
PROVIDERS: PCP Internal Medicine; Visit Provider Physician Assistant Medical
DX: S83.419A Sprain of medial collateral ligament of unspecified knee, initial encounter (principal); W19.XXXA Unspecified fall, initial encounter; Z04.2 Encounter for examination and observation following work accident
CPT/HCPCS: 99213

== ENCOUNTER 2024-01-12 08:41 | Outpatient (REF) | payer OTHER, BC, SELFPAY ==
--- NOTE | ~2024-01-12 | XR_ITS ---
EXAMINATION: XR KNEE, LEFT CLINICAL INFORMATION: Left knee pain. COMPARISON: None available. TECHNIQUE: AP view of bilateral knees standing, and left knee lateral and patellofemoral view. FINDINGS: Left Knee: -No fracture, dislocation, or suspicious bone lesion. -There is moderate to severe medial compartment joint space narrowing, as well as moderate lateral facet patellofemoral joint space narrowing. Lateral compartment is relatively spared. Spurring of the tibial spines. -Ventral patellar enthesophytes. -Normal alignment. -Tiny joint effusion in the suprapatellar bursa. -Soft tissues otherwise normal. Right Knee: (AP view only) -No fracture or dislocation, or suspicious bone lesion. -Solitary AP view demonstrates mild medial compartment joint space narrowing. -There is spurring of the tibial spines. -There is normal alignment. -No soft tissue abnormality. XR/XR knee LT 3V IMPRESSION: 1. No acute bony abnormalities bilaterally. 2. Moderate to severe left knee medial and lateral facet patellofemoral compartment osteoarthrosis. Small left knee joint effusion. 3. Mild medial compartment narrowing right knee. Electronically signed by: Raheel Arevalo MD 03/21/2024 11:23 AM EDT
== END 2024-01-12 08:42 | disposition home or self-care (01) ==
LOC: HO.HOSX 08:41
PROVIDERS: Visit Provider Physician Assistant
DX: M25.562 Pain in left knee (principal); M23.92 Unspecified internal derangement of left knee
CPT/HCPCS: 73562; 99202

== ENCOUNTER 2024-01-12 09:11 | Outpatient (AMB) | payer OTHER, BC, SELFPAY ==
--- NOTE | 2024-01-12 09:24 | MHC.OFFVIS ---
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 Patient reports that he was pulling out a ladder that is attached to his work truck, he stepped back and felt his knee hyperextend and twist. States it felt like pop rocks in his knee. He presented to [facility] walk in due to pain, swelling, and his knee was warm to touch. He has a constant dull ache that increase with ambulation and feels a crunching sensation in his knee. His discomfort is located around his knee cap. He uses a knee brace that was ordered at urgent care. He is currently out of work due to his injury. 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 He reports he was pulling out a ladder attached to his work truck when he stepped back and felt his knee hyperextend and twist which felt like ?pop rocks? in his knee. He was seen at walk-in clinic due to pain, swelling and warmth to touch where he was given a knee brace. He currently states he has constant dull ache in his knee and discomfort in his patella that is aggravated with ambulation, stairs and inclines. He also experiences a crunching sensation in knee with walking. He takes Tylenol for his pain. 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 [facility] Medical History (Updated 01/12/24 @ 11:12 by Krys Peterson PA-C) Essential hypertension Morbid obesity Vitamin D deficiency Surgical History H/O gastric sleeve Family History Mother No problems noted. 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 Cognitive needs: No Hearing needs: No Vision needs: Yes (glasses) Review of Systems Const All systems reviewed & are unremarkable except as noted in HPI and below Physical Exam Const General: cooperative, healthy appearing, comfortable, no acute distress, well developed and alert Orientation/consciousness: patient oriented x3 HEENT Head: Yes normal to inspection, Yes normocephalic and Yes atraumatic Eyes General: appearance normal, both eyes and all related structures Resp Effort & Inspection: normal respiratory effort and able to speak in complete sentences Cardio Rate: regular rate Peripheral pulses: Peripheral pulses 2+ throughout GI Palpation (GI): Soft to palpation Skin Lesions: no lesions Rashes: no rashes Neuro General: patient oriented x3 Extrem Other: Left knee: Skin intact, no erythema or joint effusion. Tenderness along the medial joint line. Full ROM with crepitus. Positive Belkis?s. No ligamentous laxity. NVI. ? Results Reviewed Results Reviewed: Xrays were obtained in the office today and personally reviewed by me of the left knee show lateralization of the patella with mild medial joint collapse. Assessment & Plan Assessment & Plan (1) Internal derangement of left knee: Code(s): M23.92 - Unspecified internal derangement of left knee Category: Medical Plan Given the mechanism of injury and significant limitation of activities along with PE findings an MRI of the left knee was ordered to further evaluate the integrity of meniscus. I briefly discussed with him that if he does not have meniscus pathology what his treatment will look like which could be surgical vs conservative management which he does understanding with. He will remain out of work till I see him back with the MRI results. Orders: Orders XR knee LT 3V Today M25.562 - Pain in left knee MR knee LT wo con Today M23.91 - Unspecified internal derangement of right knee Patient Instructions: Scribed for Krys Peterson PA-C, by Cruz Cardoza ophthalmic medical assistant, on 01/12/2024 at 10:00 AM EST.? I, Krys Peterson PA-C, have personally reviewed and agree with the information entered by the scribe. Coding Level of Care Code New Pt Level 3 (69658) Diagnoses Internal derangement of left knee M23.92
== END 2024-01-12 10:08 | disposition home or self-care (01) ==
LOC: HO.HOS 09:12
PROVIDERS: PCP Internal Medicine; Visit Provider Physician Assistant
DX: M23.92 Unspecified internal derangement of left knee (principal); Z04.2 Encounter for examination and observation following work accident
CPT/HCPCS: 99203

== ENCOUNTER → 2024-01-12 09:29 | Outpatient (BNV) | payer OTHER, BC, SELFPAY | PROVIDERS: Visit Provider Radiology Diagnostic Radiology | DX: M17.0 Bilateral primary osteoarthritis of knee (principal) | CPT/HCPCS: 73562 ==

== ENCOUNTER → 2024-02-26 14:44 | Outpatient (BNVA) | payer BC, SELFPAY | PROVIDERS: PCP Internal Medicine; Visit Provider Internal Medicine | DX: I10 Essential (primary) hypertension (principal); F41.9 Anxiety disorder, unspecified | CPT/HCPCS: 96127 ==

== ENCOUNTER 2024-02-29 11:52 | Outpatient (AMB) | payer BC, SELFPAY ==
[2024-02-29 12:32] VITALS: BP 150/82; PULSE 102; O2SAT 96; BMI 43.7
--- NOTE | 2024-02-29 12:32 | MHC.PC.OV ---
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: No Accompanied by: Self / Same As Patient Allergies No Known Allergies [No Known Allergies*] Allergy (Verified 03/03/24 16:33) Tobacco use date assessed: 02/29/24 Dental Screening Dental Screen Date: 02/29/24 Did you have a dental visit in the last 12 months?: No Did you have a dental problem in the last 6 months where you did not have access to dental care?: No Was dental information given to patient?: Patient has dentist HPI HTN, anxiety HPI Details Patient comes in today for his follow up visit States that he feels okay He is currently still experiencing left knee pain which started from an injury he sustained at work a couple of months ago - he is following up with orthopedics for this issue He denies any headaches or dizziness Denies any chest pains, no increased SOB No nausea/vomiting, no abdominal pain No change in bowel habits noted [facility] Medical History (Updated 03/03/24 @ 16:50 by Zuhair Almaguer MD) Morbid obesity with BMI of 40.0-44.9, adult Lumbar degenerative disc disease Renal calculus, left Obstructive sleep apnea Essential hypertension Morbid obesity Vitamin D deficiency Surgical History (Updated 03/03/24 @ 16:43 by Zuhair Almaguer MD) S/P laparoscopic sleeve gastrectomy H/O gastric sleeve Family History (Updated 03/03/24 @ 16:43 by Zuhair Almaguer MD) Mother Hypertension Father Myocardial infarction DVT (deep venous thrombosis) H/O heart artery stent Hypertension Diabetes mellitus Social History Housing: House Alcohol intake: never Patient Tobacco Use Status: Former Tobacco user Tobacco use type: Cigarette e-Cigarette/Vaping Use: Never Used Second Hand Smoke Exposure: No Substance Use Type: Marijuana service: Yes Current occupational status: employed 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 1. Little interest or pleasure in doing things: several days 2. Feeling down, depressed, or hopeless: nearly every day 3. Trouble falling or staying asleep, or sleeping too much: not at all 4. Feeling tired or having little energy: several days 5. Poor appetite or overeating: several days 6. Feeling bad about yourself - or that you are a failure or have let yourself or your family down: nearly every day 7. Trouble concentrating on things, such as reading the newspaper or watching television: not at all 8. Moving or speaking so slowly that other people could have noticed. Or the opposite - being so fidgety or restless that you have been moving around a lot more than usual: nearly every day 9. Thoughts that you would be better off or of hurting yourself in some way: not at all Total score: 12 Depression Screening Interpretation: Positive Depression Screening Follow-up: Existing condition and In treatment Depression Screening Done: Yes 23227 - PHQ-9 Billing: Yes Source: Developed by Drs. Satnam Mchugh, Isabella Jackson, Brain Spence and colleagues, with an educational luciana from [employer]. Thrive Questionnaire Date Thrive assessed: 02/29/24 I am a: Patient What is your living situation today?: I have a steady place to live Within the past 12 months, did the food you bought not last and you didn't have the money to get more?: Never true Within the past 12 months, did you worry whether your food would run out before you got money to buy more?: Never true Do you have trouble paying for medicines?: No Do you have trouble getting transportation to medical appointments?: No Do you have trouble paying your heating and electricity bill?: No Do you have trouble taking care of your child, family member or friend?: No Do you have trouble with day-to-day activities such as bathing, preparing meals, shopping, managing finances, etc.?: No Are you currently unemployed and looking for a job?: I choose not to answer this question Are you interested in more education?: No Please select the resources that you would like help with: None Currently or been in a relationship where the following occur: No concerns reported THRIVE Score: 0 AUDIT C Alcohol Use Questionnaire (AUDIT-C) 1. How often do you have a drink containing alcohol?: Never 3. How often do you have six or more drinks on one occasion?: Never Total Score: 0 Score Reviewed/Action Taken: Yes PRINCESS-7 AMB Questionnaire PRINCESS-7 Date PRINCESS - 7 assessed: 02/29/24 Feeling nervous, anxious, or on edge: 0 = Not at all Not being able to stop or control worryin = Not at all Worrying too much about different things: 0 = Not at all Trouble relaxin = Not at all Being so restless that it is hard to sit still: 0 = Not at all Becoming easily annoyed or irritable: 0 = Not at all Feeling afraid as if something awful might happen: 0 = Not at all Total PRINCESS-7 score (0-4 normal; 5-9 mild; 10-14 moderate; 15-21 severe): 0 Source: Developed by Drs. Satnam Mchugh, Isabella Jackson, Brain Spence and colleagues, with an educational luciana from [employer]. Review of Systems Const Denies chills, Denies fatigue, Denies fever(s) and Denies headache(s) ENT Denies dysphagia, Denies dizziness, Denies otalgia, Denies headache(s), Denies neck pain, Denies odynophagia and Denies sore throat Card Denies chest pain, Denies palpitations and Denies dyspnea Resp Denies cough and Denies dyspnea GI Denies abdominal pain, Denies constipation, Denies dysphagia, Denies heartburn, Denies diarrhea, Denies nausea, Denies odynophagia and Denies vomiting Denies dysuria, Denies nocturia and Denies urinary frequency Musc Reports back pain (over the lower back), Reports arthralgias (left knee) and Denies neck pain Skin/Breast Denies rash Neuro Denies dizziness and Denies headache(s) Psych Reports anxiety (better on Rx) Endo Denies fatigue and Denies palpitations Physical exam (Primary Care) Vital Signs: Last Vital Signs Pulse 102 H 02/29/24 12:32 BP 150/82 H 02/29/24 12:32 Pulse Ox 96 02/29/24 12:32 Oxygen Delivery Method Room Air 02/29/24 12:32 BMI result Body Mass Index 43.7 Tobacco/Smoking Status: Tobacco use Status Tobacco use date assessed 02/29/24 02/29/24 12:36 Patient Tobacco Use Status Former Tobacco user 02/29/24 12:36 Tobacco use type Cigarette 02/29/24 12:36 e-Cigarette/Vaping Use Never Used 02/29/24 12:36 PHQ-9: PHQ-9 Score PHQ-9: Total score 12 02/29/24 12:47 Depression Screening Interpretation: Positive Depression Screening Follow-up: Existing condition and In treatment Thrive Assessment: Date of Thrive Assessment Date Thrive assessed 02/29/24 02/29/24 12:36 Currently or been in a relationship where the following occur: No concerns reported Const General: no acute distress and alert HENMT Ears: TM's normal bilaterally and EAC's normal Throat: Yes posterior oropharynx normal and Yes tonsils normal (no TP congestion) Neck Neck: Yes no lymphadenopathy and Yes supple Thyroid: Thyroid normal Resp Auscultation: clear to auscultation bilaterally, no rales and no wheezes Cardio Rate: regular rate Rhythm: regular rhythm Heart sounds: no murmurs GI Palpation (GI): Soft to palpation and nontender Auscultation: normal bowel sounds General: Yes no CVA tenderness Back/Spine/Pelvis Back: no CVA tenderness Thoracic/Lumbar Spine: lumbar spinal tenderness (mild) Skin Rashes: no rashes Extrem General: Yes no clubbing, cyanosis or edema Left lower extremity: knee Details: tenderness; no swelling Assessment and Plan Assessment & Plan (1) Essential hypertension: Code(s): I10 - Essential (primary) hypertension Plan: Reinforced low sodium diet - goal is systolic BP of 120 mm or less Continue Losartan 50 mg QD for now but advised that we may need to adjust his dose further if his BP does not improve much by his next visit Patient is reminded to continue monitoring his blood pressure regularly (2) Dyslipidemia: Code(s): E78.5 - Hyperlipidemia, unspecified Plan: He has not been able to get his previously ordered labs done yet and is encouraged to try to get these done ROBERTO as it has been a year now since he last had any labs done Reinforced low cholesterol diet Will recheck his labs and fasting lipids in 4 months for follow up (3) Obstructive sleep apnea: Comment: SEVERE OBSTRUCTIVE SLEEP APNEA UNKNOWN SINCE 2011. HAS BEEN USING CPAP REGULARLY. CURRENTLY HIS CPAP DEVICE IS OLD AND NOT ABLE TO TRANSMIT THE COMPLIANCE DATA. PATIENT NEEDS A NEW, UPDATED WERE BECK OF CPAP DEVICE. SETTING WILL BE : FULLFACE MASK WITH PRESSURE OF 12 CM. Code(s): G47.33 - Obstructive sleep apnea (adult) (pediatric) Plan: Continue using his CPAP device when sleeping at night Follow up with Sleep Medicine as scheduled (4) Vitamin D deficiency: Code(s): E55.9 - Vitamin D deficiency, unspecified Plan: Will recheck his Vitamin D level for follow up (5) Lumbar degenerative disc disease: Code(s): M51.36 - Other intervertebral disc degeneration, lumbar region Plan: Reinforced activity and weight-lifting restrictions to avoid aggravating his low back pain Lumbar spine x-rays last done in 2018 revealed (+) mild degenerative changes at L4-L5 and L5-S1 (6) Anxiety: Code(s): F41.9 - Anxiety disorder, unspecified Plan: Continue Sertraline 25 mg QD He was referred to psychiatry at his last visit but he has not yet been seen (7) Morbid obesity with BMI of 40.0-44.9, adult: Code(s): E66.01 - Morbid (severe) obesity due to excess calories; Z68.41 - Body mass index [BMI] 40.0-44.9, adult Plan: Reinforced activity and weight-lifting restrictions He has failed bariatric surgery (has sleeve gastrectomy in 2019) and has been advised to try checking back with Dr. Pavon for further recommendations Plan To return in 4 months for his next annual physical examination Orders: Orders TSH reflex Free T4 4 Months E78.00 - Pure hypercholesterolemia, unspecified, Z00.00 - Encounter for general adult medical examination without abnormal findings UA CC w/rflx Micro + Cult 4 Months R30.0 - Dysuria, Z00.00 - Encounter for general adult medical examination without abnormal findings Complete Blood Count Auto Diff 4 Months D64.9 - Anemia, unspecified, Z00.00 - Encounter for general adult medical examination without abnormal findings Comprehensive Donna. Panel Fast 4 Months E78.00 - Pure hypercholesterolemia, unspecified, Z00.00 - Encounter for general adult medical examination without abnormal findings Lipid Panel 4 Months E78.00 - Pure hypercholesterolemia, unspecified, Z00.00 - Encounter for general adult medical examination without abnormal findings Vitamin D 25-OH Total 4 Months E55.9 - Vitamin D deficiency, unspecified, Z00.00 - Encounter for general adult medical examination without abnormal findings Coding Level of Care Code Est Pt Level 4 (68766) Diagnoses Essential hypertension I10 Dyslipidemia E78.5 Obstructive sleep apnea G47.33 Vitamin D deficiency E55.9 Lumbar degenerative disc disease M51.36 Anxiety F41.9 Morbid obesity with BMI of 40.0-44.9, adult E66.01; Z68.41
== END 2024-02-29 12:51 | disposition home or self-care (01) ==
PROVIDERS: PCP Internal Medicine; Visit Provider Internal Medicine
DX: I10 Essential (primary) hypertension (principal); E66.01 Morbid (severe) obesity due to excess calories; Z68.41 Body mass index [BMI] 40.0-44.9, adult; E78.5 Hyperlipidemia, unspecified; G47.33 Obstructive sleep apnea (adult) (pediatric); E55.9 Vitamin D deficiency, unspecified; M51.36 Other intervertebral disc degeneration, lumbar region; F41.9 Anxiety disorder, unspecified

== ENCOUNTER → 2024-02-29 11:52 | Outpatient (BNVA) | payer OTHER, BC, SELFPAY | PROVIDERS: PCP Internal Medicine; Visit Provider Internal Medicine | DX: I10 Essential (primary) hypertension (principal); E78.5 Hyperlipidemia, unspecified; G47.33 Obstructive sleep apnea (adult) (pediatric); E55.9 Vitamin D deficiency, unspecified; M51.36 Other intervertebral disc degeneration, lumbar region; F41.9 Anxiety disorder, unspecified; E66.01 Morbid (severe) obesity due to excess calories; Z68.41 Body mass index [BMI] 40.0-44.9, adult; Z79.899 Other long term (current) drug therapy | CPT/HCPCS: 96127 ==

== ENCOUNTER 2024-04-01 09:56 | Outpatient (AMB) | payer OTHER, BC, SELFPAY ==
--- NOTE | 2024-04-01 10:00 | MHC.OFFVIS ---
Vital Signs 04/01/24 10:01 Height 5 ft 9 in Weight 296 lb BMI 43.7 Intake Visit Reasons: OV- Left Knee MRI review Intake Note: Zane is a 49 year old male who presents today for an MRI review of his Left Knee. Patient reports that he was pulling out a ladder that is attached to his work truck, he stepped back and felt his knee hyperextend and twist. States it felt like pop rocks in his knee. DOI 01/02/24. Allergies No Known Allergies [No Known Allergies*] Allergy (Verified 03/03/24 16:33) HPI HPI OV- Left Knee MRI review: Details: Zane is a 49 year old male who presents today for an MRI review of his Left Knee. Patient reports that he was pulling out a ladder that is attached to his work truck, he stepped back and felt his knee hyperextend and twist. States it felt like pop rocks in his knee. DOI 01/02/24. He has continued to have pain. He describes pain as sharp medial-sided pain that prevents him from returning to work and getting through his day without discomfort. [facility] Medical History (Updated 04/01/24 @ 12:22 by Ganesh Timmons MD) Morbid obesity with BMI of 40.0-44.9, adult Lumbar degenerative disc disease Renal calculus, left Obstructive sleep apnea Essential hypertension Morbid obesity Vitamin D deficiency Surgical History (Updated 03/03/24 @ 16:43 by Zuhair Almaguer MD) S/P laparoscopic sleeve gastrectomy H/O gastric sleeve Family History (Updated 03/03/24 @ 16:43 by Zuhair Almaguer MD) Mother Hypertension Father Myocardial infarction DVT (deep venous thrombosis) H/O heart artery stent Hypertension Diabetes mellitus Social History Housing: House Alcohol intake: never Patient Tobacco Use Status: Former Tobacco user Tobacco use type: Cigarette e-Cigarette/Vaping Use: Never Used Second Hand Smoke Exposure: No Substance Use Type: Marijuana service: Yes Current occupational status: employed 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 IMPRESSION: 1. Complex tearing of the body and posterior horn the medial meniscus with medial meniscal extrusion and joint line and reactive subarticular edema. 2. Adjacent loculated T2 hyperintense signal adjacent to the posterior horn medial meniscal root and distal PCL likely reflects paraeniscal cyst or ganglion cyst formation. Recommend follow-up examination in 6 months to confirm stability. 3. Small knee joint effusion. Assessment & Plan Assessment & Plan (1) Tear of medial meniscus of left knee: Code(s): S83.242A - Other tear of medial meniscus, current injury, left knee, initial encounter Category: Medical Plan: This is a very pleasant 49-year-old gentleman who sustained a left knee injury at work. He has a symptomatic medial meniscus tear. This has been present for almost 3 months and his MRI as well as his exam were consistent with this diagnosis. I recommend a medial meniscectomy. I discussed with him the details including, but not limited to the risk of infection, incomplete symptom resolution, pain, extended a time out of work as well as the possibility of concomitant medial compartment osteoarthritis which can diminish this feet of his recovery and compromise outcome. He expressed understanding and we will proceed forward accordingly. Coding Level of Care Code Est Pt Level 4 (20466) Diagnoses Tear of medial meniscus of left knee S83.242A
[2024-04-01 10:01] VITALS: BMI 43.7
== END 2024-04-01 10:28 | disposition home or self-care (01) ==
PROVIDERS: PCP Internal Medicine; Visit Provider Orthopaedic Surgery
DX: S83.232A Complex tear of medial meniscus, current injury, left knee, initial encounter (principal)
CPT/HCPCS: 99214

== ENCOUNTER → 2024-04-01 09:56 | Outpatient (BNVA) | payer OTHER, BC, SELFPAY | PROVIDERS: PCP Internal Medicine; Visit Provider Orthopaedic Surgery | DX: S83.242A Other tear of medial meniscus, current injury, left knee, initial encounter (principal) | CPT/HCPCS: 99212 ==

== ENCOUNTER 2024-04-17 05:51 | Day surgery (SDC) | payer OTHER, SELFPAY ==
[2024-04-17 06:17] VITALS: BMI 44.2
[2024-04-17 06:30] VITALS: BP 135/69; PULSE 83; RESP 16; TEMP 37; O2SAT 97
[2024-04-17] MEDS: Lactated Ringers 1,000 ML 100 ML IVCONT (06:58)
--- NOTE | 2024-04-17 07:05 | HO.ANESPROP2 ---
Documented by User: Julissa Mcrae NP 04/16/24 10:04 HPI - Anesthesia Eval Consult details Narrative: 49yo M for Left Knee Arthroscopy PMFSH Active Problems Active Problems: All Active Problems Tear of medial meniscus of left knee (Acute) Morbid obesity with BMI of 40.0-44.9, adult (Acute) Vitamin D deficiency (Acute) Annual physical exam (Acute) Internal derangement of left knee (Acute) Internal derangement of right knee (Acute) Medial collateral ligament sprain of knee (Acute) Left knee pain (Acute) Anxiety (Acute) Essential hypertension (Acute) Morbid obesity (Acute) Dyslipidemia (Acute) Lumbar degenerative disc disease (Acute) Hypertension (Acute) Obstructive sleep apnea (Acute) Past Medical History Medical History (Updated 04/01/24 @ 12:22 by Ganesh Timmons MD) Morbid obesity with BMI of 40.0-44.9, adult Lumbar degenerative disc disease Renal calculus, left Obstructive sleep apnea Essential hypertension Morbid obesity Vitamin D deficiency Family History Family History (Updated 03/03/24 @ 16:43 by Zuhair Almaguer MD) Mother Hypertension Father Myocardial infarction DVT (deep venous thrombosis) H/O heart artery stent Hypertension Diabetes mellitus Surgical History Surgical History (Updated 03/03/24 @ 16:43 by Zuhair Almaguer MD) S/P laparoscopic sleeve gastrectomy H/O gastric sleeve Social History Social History Housing: House Alcohol intake: never Patient Tobacco Use Status: Former Tobacco user Tobacco use type: Cigarette e-Cigarette/Vaping Use: Never Used Second Hand Smoke Exposure: No Use of substances other than those prescribed or required for medical reasons: Yes Substance Use Type: Marijuana Substance Use Type Other:: last used 04/16 Substance Use Frequency: Daily Are you DNR?: No Advance Directives: No Advance Directives Information Provided: Yes service: Yes Current occupational status: employed 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 Cognitive needs: No Hearing needs: No Vision needs: Yes (glasses) Meds Allergies Allergy/AdvReac Type Severity Reaction Status Date / Time No Known Allergies Allergy Verified 04/17/24 06:29 [No Known Allergies*] Assessment and Plan Assessment Anesthesia Assessment: Chart Reviewed Documented by User: Asia Fonseca DO 04/17/24 08:46 [facility] Past Medical History Medical History (Updated 04/01/24 @ 12:22 by Ganesh Timmons MD) Morbid obesity with BMI of 40.0-44.9, adult Lumbar degenerative disc disease Renal calculus, left Obstructive sleep apnea Essential hypertension Morbid obesity Vitamin D deficiency Family History Family History (Updated 03/03/24 @ 16:43 by Zuhair Almaguer MD) Mother Hypertension Father Myocardial infarction DVT (deep venous thrombosis) H/O heart artery stent Hypertension Diabetes mellitus Family history of problems with anesthesia: No Surgical History Surgical History (Updated 03/03/24 @ 16:43 by Zuhair Almaguer MD) S/P laparoscopic sleeve gastrectomy H/O gastric sleeve History of Problems with Anesthesia: No Social History Social History Housing: House Alcohol intake: never Patient Tobacco Use Status: Former Tobacco user Tobacco use type: Cigarette e-Cigarette/Vaping Use: Never Used Second Hand Smoke Exposure: No Use of substances other than those prescribed or required for medical reasons: Yes Substance Use Type: Marijuana Substance Use Type Other:: last used 04/16 Substance Use Frequency: Daily Are you DNR?: No Advance Directives: No Advance Directives Information Provided: Yes service: Yes Current occupational status: employed 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 Cognitive needs: No Hearing needs: No Vision needs: Yes (glasses) Meds Allergies Allergy/AdvReac Type Severity Reaction Status Date / Time No Known Allergies Allergy Verified 04/17/24 06:29 [No Known Allergies*] Exam Exam Date and Time: 04/17/24 0702 Height,Weight and Vital Signs: Height 5 ft 9 in Weight 135.81 kg Vital Signs Temperature 98.6 F 04/17/24 06:30 Pulse Rate 83 04/17/24 06:30 Respiratory Rate 16 04/17/24 06:30 Blood Pressure 135/69 04/17/24 06:30 Pulse Oximetry 97 04/17/24 06:30 Oxygen Delivery Method Room Air 04/17/24 06:30 Temperature 97.8 F 04/17/24 08:18 Pulse Rate 82 04/17/24 08:33 Respiratory Rate 18 04/17/24 08:33 Blood Pressure 130/94 H 04/17/24 08:33 Pulse Oximetry 96 04/17/24 08:33 Oxygen Delivery Method Room Air 04/17/24 08:33 Oxygen Flow Rate 6 04/17/24 08:18 Airway Mallampati Class: III TM Dist: >3cm Neck ROM: Full Denture: Upper and Lower Heart: S1S2 Lungs: CTAB Assessment and Plan Assessment Anesthesia Assessment: Anesthesia Plan Discussed and Chart Reviewed Final Anesthetic Review Family History of Problems with Anesthesia: No History of Problems with Anesthesia: No NPO: Yes ASA Class: III Final Preanesthetic Review: No Changes in Pt Med Stat, Meds/Allgs Chart Reviewed, Consent Obtained/Reviewed and Anes Risks/Benef Reviewed Patient Risk: Intermediate Procedure Risk: Low Anesthetic Plan Anesthetic Plan: GA and Agree w/ Assess. and Plan Disposition: Standard PACU
--- NOTE | 2024-04-17 07:27 | MHC.SHP ---
Pre-Procedural Eval Section A - 24 Hr Update-Section A only Date of Service: 04/17/24 The patient is an INPATIENT: No Changes since office visit: No Cold of Flu in the past 2 weeks, No New Medical Problems, No Changes in Medication and No Patient answered all questions The patient has been examined within 24 hours of the surgical procedure. The History & Physical has been completed within 30 days and I have reviewed it.: Yes Section B - Complete if H&P > 30 days Chief Complaint: Other tear of medial meniscus, current injury, lef Allergies: Allergies Allergy/AdvReac Type Severity Reaction Status Date / Time No Known Allergies Allergy Verified 04/17/24 06:29 [No Known Allergies*] Plan I have reviewed the history and physical and performed a pertinent physical examination on my patient. No changes have occurred unless specified. Time Spent With Patient Time: Total time managing care of this patient today ____ minutes.
--- NOTE | 2024-04-17 08:11 | P.BOP_ITS ---
Brief Operative Note Date of Service: 04/17/24 Pre-op diagnosis: left knee medial meniscus tear Post-op diagnosis: other (1) L knee MMT 2) left knee MFC G3 chondromalacia 3) L knee G5 trochlear chondromalacia) Procedure: Left knee partial medial meniscectomy and chondroplasty Implants: none Surgeon: Ganesh Timmons MD Anesthesia: GLMA and local Was an Contact Lens Cutter used for this Procedure?: No Estimated blood loss (mL): 5 Tourniquet time (min): 24 IV fluids (mL): 800 Pathology: none sent Condition: stable Disposition: PACU
--- NOTE | 2024-04-17 08:14 | P.OP_ITS ---
Operative Note Operative Note Date of Service: 04/17/24 Narrative: Date of Service: 04/17/24 Pre-op diagnosis: left knee medial meniscus tear Post-op diagnosis: other (1) L knee MMT 2) left knee MFC G3 chondromalacia 3) L knee G4 trochlear chondromalacia Procedure: Left knee partial medial meniscectomy and chondroplasty Implants: none Surgeon: Ganesh Timmons MD Anesthesia: GLMA and local Was an Veterinary Technician Instructor used for this Procedure?: No Estimated blood loss (mL): 5 Tourniquet time (min): 24 IV fluids (mL): 800 Pathology: none sent Condition: stable Disposition: PACU Procedure in detail: Patient was brought to the operating room placed supine on the arthroscopic table and prepped and draped in standard sterile fashion. A time-out was called to identify proper site proper procedure proper surgeon and IV antibiotics per weight were administered. I began by exsanguinating the limb and insufflating tourniquet to 300 mm Hg. Then made a standard anterolateral stab incision. The knee was insufflated with water and 30 degree arthroscope was placed. There was grade 0 fibrillations of the patella and there was a 3mm x 10mm G4 contained central trochlear lesion. The suprapatellar pouch and the gutters were clean. I descended into the medial compartment where I made my medial portal under direct visualization. There was a complex tear of the posterior horn of the medial meniscus. The root was intact and there were G3 changes in the tibial plateau but minimal. I used a combination of biter shaver and cautery to remove unstable portions of the meniscus. Approximately 30% meniscal volume was removed. Once I was satisfied with this the ACL was examined and found to be intact and the lateral compartment also was without the need for intervention. I then performed a chondroplasty of the MFC and the trochlear lesion with a blunt nosed shaver and the cautery wand. I then removed all instrumentation and closed the portals with skin glue. 25 mL of 2% Marcaine with epinephrine was injected into the joint and the surrounding soft tissues. Patient was then plac ed in sterile dressing extubated brought recovery room stable condition. There were no known complications.
[2024-04-17 08:18] VITALS: BP 146/96; PULSE 79; RESP 18; TEMP 36.6; O2SAT 99
[2024-04-17 08:23] VITALS: BP 143/89; PULSE 78; RESP 18; O2SAT 97
[2024-04-17 08:28] VITALS: BP 152/109; PULSE 87; RESP 18; O2SAT 96
[2024-04-17 08:33] VITALS: BP 130/94; PULSE 82; RESP 18; O2SAT 96
[2024-04-17 08:48] VITALS: BP 144/96; PULSE 81; RESP 18; TEMP 36.6; O2SAT 96
== END 2024-04-17 09:23 | disposition home or self-care (01) ==
LOC: HO.SSS 05:51
PROVIDERS: PCP Internal Medicine; Visit Provider Orthopaedic Surgery
PROC: (CPT 29870; principal; 2024-04-17 07:30)
DX: S83.242A Other tear of medial meniscus, current injury, left knee, initial encounter (principal); M94.262 Chondromalacia, left knee; X58.XXXA Exposure to other specified factors, initial encounter; Y93.89 Activity, other specified; Y92.89 Other specified places as the place of occurrence of the external cause; Y99.8 Other external cause status; I10 Essential (primary) hypertension; G47.33 Obstructive sleep apnea (adult) (pediatric); N20.0 Calculus of kidney; E55.9 Vitamin D deficiency, unspecified; M51.369 Other intervertebral disc degeneration, lumbar region without mention of lumbar back pain or lower extremity pain; E66.01 Morbid (severe) obesity due to excess calories; Z68.41 Body mass index [BMI] 40.0-44.9, adult; Z98.84 Bariatric surgery status; Z87.891 Personal history of nicotine dependence
CPT/HCPCS: 29881; J0131; J0171; J0690; J1100; J1885; J2003; J2250; J2405; J2704; J2795; J3010

== ENCOUNTER → 2024-04-17 05:51 | Outpatient (BNV) | payer OTHER, SELFPAY | PROVIDERS: PCP Internal Medicine; Visit Provider Orthopaedic Surgery | DX: S83.232A Complex tear of medial meniscus, current injury, left knee, initial encounter (principal) | CPT/HCPCS: 29881 ==

== ENCOUNTER 2024-04-25 12:04 | Outpatient (AMB) | payer OTHER, BC, SELFPAY ==
--- NOTE | 2024-04-25 12:28 | A.OFFVIS_ITS ---
Intake Visit Reasons: PO LT knee 04/17/24 NE Intake Note: Zane is a 49 year old male who presents today for a post op appointment s/p LT knee 04/17/24 NE. Patient reports he is doing well. He states having a pulling sensation when he is waking on a incline. Allergies No Known Allergies [No Known Allergies*] Allergy (Verified 04/25/24 12:28) HPI HPI PO LT knee 04/17/24 NE: Details: 49-year-old male who presents in the office today 9 days status post left knee partial medial meniscectomy and chondroplasty, which was performed on 04/16/[address] Timmons. While in the office today, the patient reports experiencing a pulling sensation when he ambulates on an incline. Otherwise, he states that he is doing well. [facility] Medical History (Updated 04/01/24 @ 12:22 by Ganesh Timmons MD) Morbid obesity with BMI of 40.0-44.9, adult Lumbar degenerative disc disease Renal calculus, left Obstructive sleep apnea Essential hypertension Morbid obesity Vitamin D deficiency Surgical History (Updated 04/25/24 @ 12:54 by Teresa Briscoe) S/P laparoscopic sleeve gastrectomy H/O gastric sleeve Family History (Updated 03/03/24 @ 16:43 by Zuhair Almaguer MD) Mother Hypertension Father Myocardial infarction DVT (deep venous thrombosis) H/O heart artery stent Hypertension Diabetes mellitus Social History Housing: House Alcohol intake: never Patient Tobacco Use Status: Former Tobacco user Tobacco use type: Cigarette e-Cigarette/Vaping Use: Never Used Second Hand Smoke Exposure: No Substance Use Type: Marijuana service: Yes Current occupational status: employed 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 No surrounding erythema or drainage. No signs of infection. Range of motion to 0-110 degrees. NVI. Assessment & Plan Assessment & Plan (1) Tear of medial meniscus of left knee: Code(s): S83.242A - Other tear of medial meniscus, current injury, left knee, initial encounter Category: Medical Plan Mr. Foley is a 49-year-old male who presents in the office today 9 days status post left knee partial medial meniscectomy and chondroplasty, which was performed on 04/16/[address] Timmons. While in the office today, the patient reports experiencing a pulling sensation when he ambulates on an incline. Otherwise, he states that he is doing well. Steri-strips were carefully removed in the office today. He may return to normal activities as tolerated. We did discuss the role of physical therapy; however, the patient deferred at this time. He was provided with a work note stating to remain out of work until follow-up. Follow-up will be in 3 weeks, or sooner if needed. Patient Instructions: Scribed by Teresa Briscoe certified medical transcriptionist, for Katarzyna Acosta PA-C on 04/25/24 at 12:45 pm EST. Coding Level of Care Code Global (33874) Diagnoses Tear of medial meniscus of left knee S83.242A
== END 2024-04-25 13:05 | disposition home or self-care (01) ==
PROVIDERS: PCP Internal Medicine; Visit Provider Physician Assistant
DX: S83.242A Other tear of medial meniscus, current injury, left knee, initial encounter (principal)
CPT/HCPCS: 99024

== ENCOUNTER → 2024-04-25 12:04 | Outpatient (BNVA) | payer OTHER, BC, SELFPAY | PROVIDERS: PCP Internal Medicine; Visit Provider Physician Assistant | DX: S83.242D Other tear of medial meniscus, current injury, left knee, subsequent encounter (principal) | CPT/HCPCS: 99212 ==

== ENCOUNTER 2024-05-16 10:12 | Outpatient (AMB) | payer OTHER, BC, SELFPAY ==
--- NOTE | 2024-05-16 10:22 | A.OFFVIS_ITS ---
Intake Visit Reasons: PO LT knee 04/17/24 NE Intake Note: Zane is a 49 year old male who presents today for a post op appointment s/p LT knee 04/17/24 NE. Patient reports he was doing great. No pain or discomfort at the moment. Allergies No Known Allergies [No Known Allergies*] Allergy (Verified 05/16/24 10:26) HPI HPI PO LT knee 04/17/24 NE: Details: 49-year-old male who presents in the office today 4 weeks status post left knee partial medial meniscectomy and chondroplasty, which was performed on 04/16/[address] Timmons. I last saw the patient in the office on 04/25/24 when he reported experiencing a pulling sensation when ambulating on an incline. We discussed the role of physical therapy; however, the patient deferred at that time. He was recommended that he may return to normal activities as tolerated. He was provided with a work note stating to remain out of work until follow-up. While in the office today, the patient reports he is doing ?great.? He denies currently experiencing any pain or discomfort in her left knee. [facility] Medical History (Updated 04/01/24 @ 12:22 by Ganesh Timmons MD) Morbid obesity with BMI of 40.0-44.9, adult Lumbar degenerative disc disease Renal calculus, left Obstructive sleep apnea Essential hypertension Morbid obesity Vitamin D deficiency Surgical History (Updated 04/25/24 @ 12:54 by Teresa Briscoe) S/P laparoscopic sleeve gastrectomy H/O gastric sleeve Family History (Updated 03/03/24 @ 16:43 by Zuhair Almaguer MD) Mother Hypertension Father Myocardial infarction DVT (deep venous thrombosis) H/O heart artery stent Hypertension Diabetes mellitus Social History Housing: House Alcohol intake: never Patient Tobacco Use Status: Former Tobacco user Tobacco use type: Cigarette e-Cigarette/Vaping Use: Never Used Second Hand Smoke Exposure: No Substance Use Type: Marijuana service: Yes Current occupational status: employed 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 Prior incision sites are well approximated and healed with no signs of infection. Range of motion is 0-120 degrees. NVI. Assessment & Plan Assessment & Plan (1) Tear of medial meniscus of left knee: Code(s): S83.242A - Other tear of medial meniscus, current injury, left knee, initial encounter Category: Medical Plan Mr. Foley is a 49-year-old male who presents in the office today 4 weeks status post left knee partial medial meniscectomy and chondroplasty, which was performed on 04/16/[address] Timmons. I last saw the patient in the office on 04/25/24 when he reported experiencing a pulling sensation when ambulating on an incline. We discussed the role of physical therapy; however, the patient defe rred at that time. He was recommended that he may return to normal activities as tolerated. He was provided with a work note stating to remain out of work until follow-up. While in the office today, the patient reports he is doing ?great.? He denies currently experiencing any pain or discomfort in her left knee. The patient will return to normal activities. He may resume back to work, full-time, regular duty starting from 05/20/24. Follow-up will be PRN, or sooner if needed. Patient Instructions: Scribed by Teresa Bricsoe medical facilities section director, for Katarzyna Acosta PA-C on 05/16/24 at 10:37 am EST. Coding Level of Care Code Global (30429) Diagnoses Tear of medial meniscus of left knee S83.242A
== END 2024-05-16 11:00 | disposition home or self-care (01) ==
PROVIDERS: PCP Internal Medicine; Visit Provider Physician Assistant
DX: S83.242A Other tear of medial meniscus, current injury, left knee, initial encounter (principal)
CPT/HCPCS: 99024

== ENCOUNTER → 2024-05-16 10:12 | Outpatient (BNVA) | payer OTHER, BC, SELFPAY | PROVIDERS: PCP Internal Medicine; Visit Provider Physician Assistant | DX: S83.242A Other tear of medial meniscus, current injury, left knee, initial encounter (principal); X58.XXXA Exposure to other specified factors, initial encounter; Y93.01 Activity, walking, marching and hiking; Y92.9 Unspecified place or not applicable; Y99.9 Unspecified external cause status | CPT/HCPCS: 99212 ==

== ENCOUNTER → 2024-07-30 12:24 | Outpatient (BNVA) | payer SELFPAY | PROVIDERS: PCP Internal Medicine; Visit Provider Registered Nurse | DX: Z02.79 Encounter for issue of other medical certificate (principal) ==

== ENCOUNTER 2024-11-14 13:31 | Outpatient (AMB) | payer OTHER, SELFPAY ==
[2024-11-14 13:29] VITALS: BP 148/94; PULSE 109; TEMP 36.6; O2SAT 97; BMI 42.6
--- NOTE | 2024-11-14 13:29 | AM.OFFWIN_ITS ---
Intake Vital Signs 11/14/24 13:29 Height 5 ft 9 in Weight 288 lb 4 oz BMI 42.6 BP 148/94 H Blood Pressure Location Lt brachial Position Sitting Pulse 109 H Pulse Source Pulse Oximeter Temp 97.8 F Temp Source Oral Pulse Oximetry (%) 97 Oxygen Delivery Method Room Air Intake Visit Reasons: EP WC-? broken RT wrist Intake Note: Pt presents to the office today for c/o severe wrist pain. Pt states around 10am he was closing the door of his work truck and his hand got slammed as the door was closing. Pt states he is unable to lift anything with that hand. Patient Tobacco Use Status: Former Tobacco user Allergies No Known Allergies [No Known Allergies*] Allergy (Verified 11/14/24 13:29) HPI HPI Comments History of Present Illness Details History of Present Illness - The patient is a 49-year-old male pres enting with an acute hand injury. - The injury is a result of a crush mech anism involving the right hand between a door and truck, occurring today at 10:30 AM. - Functional difficulties noted include an inability to hold a water bottle or cell phone and pain with twisting movements of the hand. - No numbness or tingling reported. His hand is painful and hurts to move. - The pain radiates down the arm during certain movements; however, the elbow and forearm remain unaffected. - No immediate treatment was administere d following the incident. He states that he finished his shift. - Denies numbness and tingling, elbow pa in, shoulder pain, arm pain. Physical Exam General: Cooperative, healthy appearing, comfortable, no acute distress and well developed Respiratory: Normal respiratory effort and able to speak in complete sentences. Clear to auscultation bilaterally Cardiovascular: Regular rate and rhythm. Normal S1 and S2 GI: Normal to inspection. Soft to palpation and nontender Skin: No rashes or lesions noted Neuro: Sensation intact on the RUE Extremities: Right hand swollen and right wrist swollen. TTP of the right ulnar styloid, right 5th carpals and base of metacarpal. Decrease ROM of the wrist and hand due to pain. Patient was informed and verbally consented to the use of an ambient scribe for clinic note documentation during this visit. [facility] Medical History Morbid obesity with BMI of 40.0-44.9, adult Lumbar degenerative disc disease Renal calculus, left Obstructive sleep apnea Essential hypertension Morbid obesity Vitamin D deficiency Surgical History S/P laparoscopic sleeve gastrectomy H/O gastric sleeve Family History Mother Hypertension Father Myocardial infarction DVT (deep venous thrombosis) H/O heart artery stent Hypertension Diabetes mellitus Social History Housing: House Alcohol intake: never Patient Tobacco Use Status: Former Tobacco user Tobacco use type: Cigarette e-Cigarette/Vaping Use: Never Used Second Hand Smoke Exposure: No Substance Use Type: Marijuana service: Yes Current occupational status: employed 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 Cognitive needs: No Hearing needs: No Vision needs: Yes (glasses) Review of Systems Const All systems reviewed & are unremarkable except as noted in HPI and below Physical Exam Vital Signs: Last Vital Signs Temp 97.8 F 11/14/24 13:29 Pulse 109 H 11/14/24 13:29 BP 148/94 H 11/14/24 13:29 Pulse Ox 97 11/14/24 13:29 Oxygen Delivery Method Room Air 11/14/24 13:29 BMI result Body Mass Index 42.6 Assessment & Plan Assessment & Plan (1) Ulna styloid fracture, closed: Code(s): S52.613A - Displaced fracture of unspecified ulna styloid process, initial encounter for closed fracture Qualifiers: Encounter type: initial encounter Fracture alignment: nondisplaced Laterality: right Qualified Code(s): S52.614A - Nondisplaced fracture of right ulna styloid process, initial encounter for closed fracture Plan Most likely fracture vs contusion vs sprain Plan - Imaging studies to be performed to evaluate the structural integrity of the right hand and detect any possible fractures. - Initiation of anti-inflammatory treatment to manage pain and reduce swelling. - Oxycodone given for severe pain. - Advise the patient to immobilize the hand and avoid aggravating movements to facilitate healing. - Splint applied in the office. - Plan for follow-up with ortho - Work note given to the patient - f/u with PCP Orders: Orders XR wrist RT min 3V Today M25.539 - Pain in unspecified wrist XR hand RT min 3V Today M79.641 - Pain in right hand Referrals Orthopedics Referral S52.681M - Displaced fracture of unspecified ulna styloid process, initial encounter for closed fracture Medications: New oxycodone Partial Fill upon patient request. 5 mg PO q8h 7 days PRN 21 tabs 0RF Pain Coding Level of Care Code Est Pt Level 4 (17643) Diagnoses Closed nondisplaced fracture of styloid process of right ulna, initial encounter S52.676F Encounter type: initial encounter Fracture alignment: nondisplaced Laterality: right
--- OUTSIDE RECORDS SUMMARY | 2024-11-14 15:46 | XMS_ITS | Clinical Summary ---
Author Organization [facility] Address [address] [place] [address] Care Team Providers Care Supervisory Cbp Officer Name Role Phone Delilah Saez MD Primary Care Provider Surgical History Surgery Date Site/Laterality Comments OTHER SURGICAL HISTORY PROCEDURE: DENIES PREVIOUS SURGERY Medical History Medical History Date Comments Hypertension 09/01/2016 DX:Hypertension Morbid obesity with BMI of 5 0.0-59.9, adult (CMS/HCC V24, CMS/HCC V28) 09/01/2016 DX:Morbid obesity wit h BMI of 50.0-59.9, adult (HCC) Hypertriglyceridemia 10/05/2016 DX:Hypertri glyceridemia Umbilical hernia 10/05/2016 DX:Umbilical he rnia Lumbar herniated disc 10/05/2016 DX:Lumbar herniated disc; COMMENT: L 3-4, 4-5, L5 -S 1 Torn medial meniscus 10/05/2016 DX:Torn med ial meniscus; COMMENT: Left MRI 03/15/14 Cyst of left kidney 10/05/2016 DX:Cyst of l eft kidney; COMMENT: MRI 08/08/06 Mixed sleep apnea 10/05/2016 DX:Mixed sleep apnea; COMMENT: Sleep study 08/07/11. CPAP 12 cm recommended Hypoxia 10/05/2016 DX:Hypoxia; COMM ENT: 06/22/10- oximetry Family History Medical History Relation Name Comments Hypertension Father obesity Stroke Grandparent 1 Hypertension Mother obesity Relation Name Status Comments Daughter 1 Alive Daughter 2 Alive Daughter 3 Alive Daughter 4 Alive Father Grandparent 1 Grandparent 2 Mother Son 1 Alive Son 2 Alive Son 3 Alive Social History Tobacco Use Types Packs/Day Years Used Date Smoking Tobacco: Every Day Cigarettes Alcohol Use Standard Drinks/Week Comments Yes 0 (1 standard drink = 0.6 oz pur e alcohol) Sex and Gender Information Value Date Recorded Sex Assigned at Not on file Legal Sex Male 8:03 AM EST Gender Identity Not on file Sexual Orientation Not on file Obstetrics History Plan of Treatment Health Maintenance Due Date Last Done Comments DTaP,Tdap,and Td Vaccines (1 - Tdap) 02/26/1995 Hepatitis B Vaccines (1 of 3 - 19+ 3-dose series) 02/26/1995 COVID-19 Vaccine ( - 2023-2 5 season) 2024 Influenza Vaccine (Season Ended) 2025 HIB Vaccines Aged Out No longer eligi ble based on patient's age to complete this topic HPV Vaccines Aged Out No longer eligi ble based on patient's age to complete this topic Hepatitis A Vaccines Aged Out No long er eligible based on patient's age to complete this topic IPV Vaccines Aged Out No longer eligi ble based on patient's age to complete this topic MMR Vaccines Aged Out No longer eligi ble based on patient's age to complete this topic Meningococcal ACWY Vaccine Aged Out N o longer eligible based on patient's age to complete this topic Meningococcal B Vaccine Aged Out No l onger eligible based on patient's age to complete this topic Pneumococcal Vaccine: Pediat rics (0 to 5 Years) and At-Risk Patients (6 to 64 Years) Aged Out No longer eligible b ased on patient's age to complete this topic RSV Immunization Patients Un solange 20 months Aged Out No longer eligible b ased on patient's age to complete this topic Varicella Vaccines Aged Out No longer eligible based on patient's age to complete this topic Care Teams Supervisory Cbp Officer Relationship Specialty Start Date End Date Delilah Saez MD [address] [place] [id number] PCP - General Internal Medicine 08/30/16
== END 2024-11-14 15:26 | disposition home or self-care (01) ==
PROVIDERS: PCP Internal Medicine; Visit Provider Physician Assistant Medical
DX: S52.614A Nondisplaced fracture of right ulna styloid process, initial encounter for closed fracture (principal); Z04.2 Encounter for examination and observation following work accident

== ENCOUNTER 2024-11-14 13:31 | Outpatient (REF) | payer OTHER, BC, SELFPAY ==
--- NOTE | ~2024-11-14 | XR_ITS ---
EXAMINATION: XR WRIST, RIGHT CLINICAL INFORMATION: M25.539 - Pain in unspecified wrist COMPARISON: None available. TECHNIQUE: PA, lateral, and oblique views of the right wrist. FINDINGS: There is lucency across the base of the ulnar styloid consistent with acute fracture. No other abnormal lucencies are detected. There is no joint diastases or abnormal step-off. XR/XR wrist RT min 3V IMPRESSION: Acute ulnar styloid fracture Electronically signed by: Devante Olvera MD 11/14/2024 02:41 PM EDT
--- NOTE | ~2024-11-14 | XR_ITS ---
EXAMINATION: XR HAND, RIGHT CLINICAL INFORMATION: M79.641 - Pain in right hand COMPARISON: None available. TECHNIQUE: PA, lateral, and oblique views of the right hand. FINDINGS: There is oblique lucency through the base of the ulnar styloid consistent with an acute fracture. No other abnormalities are evident. XR/XR hand RT min 3V IMPRESSION: Acute ulnar styloid fracture. Electronically signed by: Devante Olvera MD 11/14/2024 02:39 PM EDT
== END 2024-11-14 13:32 | disposition home or self-care (01) ==
LOC: HO.HMGCX 13:31
PROVIDERS: PCP Internal Medicine; Visit Provider Physician Assistant Medical
DX: M79.641 Pain in right hand (principal); M25.531 Pain in right wrist; S52.614A Nondisplaced fracture of right ulna styloid process, initial encounter for closed fracture
CPT/HCPCS: 73110; 73130; 99212

== ENCOUNTER → 2024-11-14 14:06 | Outpatient (BNV) | payer OTHER, SELFPAY | PROVIDERS: PCP Internal Medicine; Visit Provider Radiology Diagnostic Radiology | DX: S52.611A Displaced fracture of right ulna styloid process, initial encounter for closed fracture (principal) | CPT/HCPCS: 73110; 73130 ==

== ENCOUNTER 2024-11-19 08:40 | Outpatient (REF) | payer OTHER, BC, SELFPAY ==
--- NOTE | ~2024-11-19 | XR_ITS ---
EXAMINATION: XR WRIST, RIGHT CLINICAL INFORMATION: M25.531 - Pain in right wrist COMPARISON: 11/14/2024. TECHNIQUE: PA, lateral, and oblique views of the right wrist. FINDINGS: Redemonstration of nondisplaced ulnar styloid fracture. No additional fracture. No malalignment. Carpal bones intact and normally aligned. Joint spaces are preserved. No significant arthropathy. Soft tissues are unremarkable. XR/XR wrist RT min 3V IMPRESSION: Ulnar styloid fracture, without change. Electronically signed by: Raheel Arevalo MD 11/19/2024 11:00 AM EDT
--- OUTSIDE RECORDS SUMMARY | 2024-11-19 09:00 | XMS_ITS | Clinical Summary ---
Author Organization [facility] Address [address] [place] [address] Care Team Providers Care Oncology Radiation Physician Name Role Phone Delilah Saez MD Primary [...] age to complete this topic Care Teams Oncology Radiation Physician Relationship Specialty Start Date End Date Delilah Saez MD [address] [place] [phone] PCP - General Internal Medicine 08/30/16
== END 2024-11-19 08:41 | disposition home or self-care (01) ==
LOC: HO.HOSX 08:40
DX: M25.531 Pain in right wrist (principal); S52.611A Displaced fracture of right ulna styloid process, initial encounter for closed fracture; M79.641 Pain in right hand
CPT/HCPCS: 73110; 99212

== ENCOUNTER 2024-11-19 10:20 | Outpatient (AMB) | payer OTHER, SELFPAY ==
--- NOTE | 2024-11-19 10:35 | MHC.OFFVIS ---
Vital Signs 11/19/24 10:41 Height 5 ft 9 in Weight 288 lb BMI 42.5 Handedness Right Intake Visit Reasons: ED f/u RT ulnar styloid fx Intake Note: Zane is a 49 year old right hand dominant male who presents today for a follow up from the [facility] for his right hand injury, DOI: 11/14/24. Patient reports the overhead door to his truck slammed on his hand. He was placed in a splint at the walk in clinic. He expresses constant daily pain in the right wrist, on the dorsal aspect of the right hand. Shooting pain goes into his elbow with ulnar and radial deviation, supination and pronation. Should not be taking NSAID due to gastro surgery in past. Allergies No Known Allergies (No Known Allergies*) Allergy (Verified 11/19/24 10:41) HPI HPI ED f/u RT ulnar styloid fx: Details: Zane is a 49 year old right hand dominant male who presents today for a follow up from the [facility] for his right hand injury, DOI: 11/14/24. Patient reports the overhead door to his truck slammed on his hand. He was placed in a splint at the walk in clinic. He expresses constant daily pain in the right wrist, on the dorsal aspect of the right hand. Shooting pain goes into his elbow with ulnar and radial deviation, supination and pronation. Should not be taking NSAID due to gastro surgery in past. [facility] Medical History Morbid obesity with BMI of 40.0-44.9, adult Lumbar degenerative disc disease Renal calculus, left Obstructive sleep apnea Essential hypertension Morbid obesity Vitamin D deficiency Surgical History S/P laparoscopic sleeve gastrectomy H/O gastric sleeve Family History Mother Hypertension Father Myocardial infarction DVT (deep venous thrombosis) H/O heart artery stent Hypertension Diabetes mellitus Social History Housing: House Alcohol intake: never Patient Tobacco Use Status: Former Tobacco user Tobacco use type: Cigarette e-Cigarette/Vaping Use: Never Used Second Hand Smoke Exposure: No Substance Use Type: Marijuana service: Yes Current occupational status: employed 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 Neuro: Normal sensation of the tips of all digits of the right hand at this time Vascular: Cap refill brisk Pain: Tenderness to palpation of the right ulnar styloid Tenderness to palpation of right anatomical snuffbox No tenderness to palpation of right scaphoid tubercle Some pain with range of motion of the right hand ROM: Patient is able to make a closed fist and extend all digits of the right hand fully No laxity noted with testing of the DRUJ Skin: No lacerations or abrasions. General: No ecchymosis, erythema, or evidence of infection. Psych: Appears grossly normal Affect normal Attitude cooperative Office Procedures AMB Fracture Care Details: Right ulnar styloid fracture Fracture Billing Code: Fracture Billing Code Assessment & Plan Assessment & Plan (1) Fracture of right ulnar styloid: Code(s): S52.611A - Displaced fracture of right ulna styloid process, initial encounter for closed fracture Category: Medical (2) Tenderness of anatomical snuffbox: Code(s): M79.643 - Pain in unspecified hand Category: Medical Plan 1. Right ulnar styloid fracture 2. Tenderness of right anatomical snuffbox Patient is educated about these conditions Patient is educated about the typical treatment course At this time, patient is provided Velcro thumb spica splint to be worn like a cast except when bathing Patient is educated on 2 lb weight limit and light duty precautions at this time If patient continues to experience anatomical snuffbox tenderness in 2 weeks, I feel it is probably in his best interest to get an MRI to assess the health of the scaphoid Patient states understanding of this and is amenable to this plan Follow-up in 2 weeks with repeat x-rays for reassessment, sooner with any acute concerns Orders: Orders XR wrist RT min 3V 11/19/24 M25.531 - Pain in right wrist Coding Level of Care Code Est Pt Level 3 (28515) Diagnoses Fracture of right ulnar styloid S52.611A Tenderness of anatomical snuffbox M79.643 CPT Codes Fracture Care - Fracture Billing Code: Fracture Billing Code ([id number])
[2024-11-19 10:41] VITALS: BMI 42.5
== END 2024-11-19 11:21 | disposition home or self-care (01) ==
LOC: HO.HOS 10:20
PROVIDERS: PCP Internal Medicine
DX: S52.611A Displaced fracture of right ulna styloid process, initial encounter for closed fracture (principal); M79.643 Pain in unspecified hand
CPT/HCPCS: 99213

== ENCOUNTER → 2024-11-19 10:26 | Outpatient (BNV) | payer OTHER, SELFPAY | PROVIDERS: Visit Provider Radiology Diagnostic Radiology | DX: S52.611A Displaced fracture of right ulna styloid process, initial encounter for closed fracture (principal) | CPT/HCPCS: 73110 ==

== ENCOUNTER 2024-12-05 14:49 | Outpatient (REF) | payer OTHER, BC, SELFPAY ==
--- NOTE | ~2024-12-05 | XR_ITS ---
EXAMINATION: XR WRIST, RIGHT CLINICAL INFORMATION: M79.641 - Pain in right hand follow-up fracture COMPARISON: November 19, 2024 TECHNIQUE: PA, lateral, and oblique views of the right wrist. FINDINGS: There is a transverse fracture across the base of the ulnar styloid. No interval shift in the ulnar styloid fragment has occurred. No periosteal new bone formation is identified. No other fractures are evident. XR/XR wrist RT w scaphoid IMPRESSION: Stable ulnar styloid fracture. Electronically signed by: Devante Olvera MD 12/05/2024 03:11 PM EDT
== END 2024-12-05 14:50 | disposition home or self-care (01) ==
LOC: HO.HOSX 14:49
PROVIDERS: PCP Internal Medicine
DX: M79.641 Pain in right hand (principal); S52.611A Displaced fracture of right ulna styloid process, initial encounter for closed fracture
CPT/HCPCS: 73110; 99212

== ENCOUNTER 2024-12-05 14:49 | Outpatient (AMB) | payer OTHER, SELFPAY ==
--- OUTSIDE RECORDS SUMMARY | 2024-12-05 14:52 | XMS_ITS | Clinical Summary ---
Author Organization [facility] Address [address] [place] [address] Care Team Providers Care Surfacing Machine Operator Name Role Phone Delilah Saez MD Primary [...] age to complete this topic Care Teams Surfacing Machine Operator Relationship Specialty Start Date End Date Delilah Saez MD [address] [place] [id number] PCP - General Internal Medicine 08/30/16
[2024-12-05 14:57] VITALS: BMI 42.5
--- NOTE | 2024-12-05 14:57 | MHC.OFFVIS ---
Vital Signs 12/05/24 14:57 Height 5 ft 9 in Weight 288 lb BMI 42.5 Intake Visit Reasons: OV: RT styloid fx DOI 10/14/24-w/xrays Intake Note: Zane is a 49 year old right hand dominant male who presents today for a follow up for his right ulnar styloid fracture and tenderness of right anatomical snuffbox, DOI: 11/14/24. On 11/19/24 patient was given a Velcro thumb spica splint to be worn like a cast except when bathing and restricted to a 2lb weight limit. Xrays updated. Currently states he has mild pain with certain movements. Continues to wear his thumb spica brace. Allergies No Known Allergies (No Known Allergies*) Allergy (Verified 12/05/24 15:02) HPI HPI OV: RT styloid fx DOI 10/14/24-w/xrays: Details: Zane is a 49 year old right hand dominant male who presents today for a follow up for his right ulnar styloid fracture and tenderness of right anatomical snuffbox, DOI: 11/14/24. On 11/19/24 patient was given a Velcro thumb spica splint to be worn like a cast except when bathing and restricted to a 2lb weight limit. Xrays updated. Currently states he has mild pain with certain movements. Continues to wear his thumb spica brace. [facility] Medical History Morbid obesity with BMI of 40.0-44.9, adult Lumbar degenerative disc disease Renal calculus, left Obstructive sleep apnea Essential hypertension Morbid obesity Vitamin D deficiency Surgical History S/P laparoscopic sleeve gastrectomy H/O gastric sleeve Family History Mother Hypertension Father Myocardial infarction DVT (deep venous thrombosis) H/O heart artery stent Hypertension Diabetes mellitus Social History Housing: House Alcohol intake: never Patient Tobacco Use Status: Former Tobacco user Tobacco use type: Cigarette e-Cigarette/Vaping Use: Never Used Second Hand Smoke Exposure: No Substance Use Type: Marijuana service: Yes Current occupational status: employed 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 Neuro: Normal sensation of the tips of all digits of the right hand at this time Vascular: Cap refill brisk Pain: No Tenderness to palpation of the right ulnar styloid No Tenderness to palpation of right anatomical snuffbox No tenderness to palpation of right scaphoid tubercle Some pain with range of motion of the right hand ROM: Patient is able to make a closed fist and extend all digits of the right hand fully Wrist flexion and extension full and intact Pronation and supination full and intact No laxity noted with testing of the DRUJ Skin: No lacerations or abrasions. General: No ecchymosis, erythema, or evidence of infection. Psych: Appears grossly normal Affect normal Attitude cooperative Assessment & Plan Assessment & Plan (1) Fracture of right ulnar styloid: Code(s): S52.611A - Displaced fracture of right ulna styloid process, initial encounter for closed fracture Category: Medical Plan 1. Right ulnar styloid fracture Patient is educated about these conditions Patient is educated about the typical treatment course No further snuffbox tenderness, no MRI needed at this time Patient is given a velcro wrist splint to be work with daytime activities 2 lb weight limit until f/u Patient states understanding of this and is amenable to this plan Follow-up in 3-4 weeks with repeat x-rays for reassessment, sooner with any acute concerns Orders: Orders XR wrist RT w scaphoid 12/05/24 M79.641 - Pain in right hand Coding Level of Care Code Global (22567) Diagnoses Fracture of right ulnar styloid S52.611A
== END 2024-12-05 15:16 | disposition home or self-care (01) ==
LOC: HO.HOS 14:50
PROVIDERS: PCP Internal Medicine
DX: S52.611A Displaced fracture of right ulna styloid process, initial encounter for closed fracture (principal)
CPT/HCPCS: 99213

== ENCOUNTER → 2024-12-05 14:52 | Outpatient (BNV) | payer OTHER, SELFPAY | PROVIDERS: PCP Internal Medicine; Visit Provider Radiology Diagnostic Radiology | DX: S52.611A Displaced fracture of right ulna styloid process, initial encounter for closed fracture (principal) | CPT/HCPCS: 73110 ==

== ENCOUNTER 2025-01-01 09:44 | Outpatient (AMB) | payer OTHER, SELFPAY ==
--- NOTE | 2025-01-01 09:46 | A.OFFVIS_ITS ---
Vital Signs 01/01/25 09:48 01/01/25 09:52 Height 5 ft 9 in 5 ft 9 in Weight 288 lb 285 lb BMI 42.5 42.1 Handedness Right Intake Visit Reasons: OV: RT styloid fx DOI 10/14/24-w/xrays Intake Note: Zane is a 49 year old right hand dominant male who presents today for a follow up for his right ulnar styloid fracture and tenderness of right anatomical snuffbox, DOI: 11/14/24. At his last visit on 12/05/24 he was placed in a velcro wrist brace to be worn with daily activities and advised to continue 2 lb weight limit. Patient reports he has been doing what he can with his wrist. At first her reports having limitations with certain movement of the wrist however now he is able to move the wrist without discomfort. At home he says he works on ROM exercises. Denies numbness and tingling. He needs to discuss work status today. 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 Allergies No Known Allergies (No Known Allergies*) Allergy (Verified 01/01/25 09:50) HPI HPI OV: RT styloid fx DOI 10/14/24-w/xrays: Details: Zane is a 49 year old right hand dominant male who presents today for a follow up for his right ulnar styloid fracture and tenderness of right anatomical snuffbox, DOI: 11/14/24. At his last visit on 12/05/24 he was placed in a velcro wrist brace to be worn with daily activities and advised to continue 2 lb weight limit. Patient reports he has been doing what he can with his wrist. At first her reports having limitations with certain movement of the wrist however now he is able to move the wrist without discomfort. At home he says he works on ROM exercises. Denies numbness and tingling. He needs to discuss work status today. 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 [facility] Medical History Morbid obesity with BMI of 40.0-44.9, adult Lumbar degenerative disc disease Renal calculus, left Obstructive sleep apnea Essential hypertension Morbid obesity Vitamin D deficiency Surgical History S/P laparoscopic sleeve gastrectomy H/O gastric sleeve Family History Mother Hypertension Father Myocardial infarction DVT (deep venous thrombosis) H/O heart artery stent Hypertension Diabetes mellitus Social History Housing: House Alcohol intake: never Patient Tobacco Use Status: Former Tobacco user Tobacco use type: Cigarette e-Cigarette/Vaping Use: Never Used Second Hand Smoke Exposure: No Substance Use Type: Marijuana service: Yes Current occupational status: employed 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 Neuro: Normal sensation of the tips of all digits of the right hand at this time Vascular: Cap refill brisk Pain: No Tenderness to palpation of the right ulnar styloid No Tenderness to palpation of right anatomical snuffbox No tenderness to palpation of right scaphoid tubercle No pain with range of motion of the right hand ROM: Patient is able to make a closed fist and extend all digits of the right hand fully Wrist flexion and extension full and intact Pronation and supination full and intact No laxity noted with testing of the DRUJ Skin: No lacerations or abrasions. General: No ecchymosis, erythema, or evidence of infection. Psych: Appears grossly normal Affect normal Attitude cooperative Assessment & Plan Assessment & Plan (1) Fracture of right ulnar styloid: Code(s): S52.611A - Displaced fracture of right ulna styloid process, initial encounter for closed fracture Category: Medical Plan 1. Right ulnar styloid fracture Patient is educated about these conditions Patient is educated about the typical treatment course No further snuffbox tenderness, no MRI needed at this time Patient is given a velcro wrist splint to be work with daytime activities Patient can begin a slow return back to full normal activity over the next 3-4 weeks Cleared to return back to work with no active restrictions, as the patient does not frequently lift heavily at work Patient states understanding of this and is amenable to this plan Follow-up as needed with any acute concerns Coding Level of Care Code Global (72210) Diagnoses Fracture of right ulnar styloid S52.611A
[2025-01-01 09:48] VITALS: BMI 42.5
[2025-01-01 09:52] VITALS: BMI 42.1
--- OUTSIDE RECORDS SUMMARY | 2025-01-01 10:20 | XMS_ITS | Clinical Summary ---
Author Organization [facility] Address [address] [place] [address] Care Team Providers Care Piano Builder Name Role Phone Delilah Saez MD Primary [...] Vaccine ( - 2023-2 5 season) 2024 Depression Screening 06/05/2024 Influenza Vaccine (#1) 2025 HIB Vaccines Aged Out No longer [...] 5 Years) and At-Risk Patients (6 to 49 Years) Aged Out No longer eligible b ased on patient's age to complete this topic RSV Immunization Patients Un solange 20 months Aged Out No longer eligible b ased on patient's age to complete this topic Varicella Vaccines Aged Out No longer eligible based on patient's age to complete this topic Care Teams Piano Builder Relationship Specialty Start Date End Date Delilah Saez MD [address] [place] [id number] PCP - General Internal Medicine 08/30/16
== END 2025-01-01 10:03 | disposition home or self-care (01) ==
LOC: HO.HOS 09:44
PROVIDERS: PCP Internal Medicine
DX: S52.611A Displaced fracture of right ulna styloid process, initial encounter for closed fracture (principal)
CPT/HCPCS: 99213

== ENCOUNTER → 2025-01-01 09:44 | Outpatient (BNVA) | payer OTHER, BC, SELFPAY | PROVIDERS: PCP Internal Medicine | DX: S52.611A Displaced fracture of right ulna styloid process, initial encounter for closed fracture (principal) | CPT/HCPCS: 99212 ==

== ENCOUNTER 2025-01-14 13:45 | Outpatient (AMB) | payer BC, SELFPAY ==
[2025-01-14 13:48] VITALS: BP 150/100; PULSE 97; O2SAT 98; BMI 42.7
--- NOTE | 2025-01-14 13:48 | MHC.PC.OV ---
Vital Signs 01/14/25 13:48 Height 5 ft 9 in Weight 289 lb 8 oz BMI 42.7 BP 150/100 H Blood Pressure Location Lt brachial Position Sitting Pulse 97 Pulse Source Pulse Oximeter Pulse Oximetry (%) 98 Oxygen Delivery Method Room Air Intake Visit Reasons: annual exam/ htn Chief Radiologic Technologist Required: No Accompanied by: Self / Same As Patient Allergies No Known Allergies (No Known Allergies*) Allergy (Verified 01/14/25 14:18) Medication List - Last Reconciled 01/14/25 by Zuhair Almaguer MD losartan 50 mg PO DAILY 90 days Tobacco use date assessed: 01/14/25 Dental Screening Dental Screen Date: 01/14/25 Did you have a dental visit in the last 12 months?: No Did you have a dental problem in the last 6 months where you did not have access to dental care?: No Was dental information given to patient?: No HPI annual exam/ htn HPI Details Patient comes in today for his annual physical examination - he has not been back since February 2024 States that he feels okay He denies any headaches or dizziness Denies any chest pains, no shortness of breath No nausea/vomiting, no abdominal pain No change in bowel habits noted He denies any acute urinary symptoms States that he still has some mild pain over his right wrist at times but feels a lot better now than it did a couple of months ago when his right wrist and hand got caught in the door of his truck and he sustained a wrist fracture States that he was seen by Orthopedics and fortunately, did not require surgery and he was just managed conservatively with a cast and brace States that his right wrist injuries mostly healed at this time and he has very little difficulty with using his right hand and wrist for daily activities Adds that his wants him to get a referral for at least some therapy and counseling, as he supposedly has had problems with anger management His reports that he literally turns into a different person when he gets mad or upset and has at times almost gotten out of control He is also due for colon cancer screening - states that he has not yet had any screening colonoscopy done so far [facility] Medical History Morbid obesity with BMI of 40.0-44.9, adult Lumbar degenerative disc disease Renal calculus, left Obstructive sleep apnea Essential hypertension Morbid obesity Vitamin D deficiency Surgical History S/P laparoscopic sleeve gastrectomy H/O gastric sleeve Family History Mother Hypertension Father Myocardial infarction DVT (deep venous thrombosis) H/O heart artery stent Hypertension Diabetes mellitus Social History Housing: House Alcohol intake: never Patient Tobacco Use Status: Former Tobacco user Tobacco use type: Cigarette e-Cigarette/Vaping Use: Never Used Second Hand Smoke Exposure: No Substance Use Type: Marijuana service: Yes Current occupational status: employed 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 1. Little interest or pleasure in doing things: several days 2. Feeling down, depressed, or hopeless: several days 3. Trouble falling or staying asleep, or sleeping too much: not at all 4. Feeling tired or having little energy: several days 5. Poor appetite or overeating: several days 6. Feeling bad about yourself - or that you are a failure or have let yourself or your family down: several days 7. Trouble concentrating on things, such as reading the newspaper or watching television: not at all 8. Moving or speaking so slowly that other people could have noticed. Or the opposite - being so fidgety or restless that you have been moving around a lot more than usual: not at all 9. Thoughts that you would be better off or of hurting yourself in some way: not at all Total score: 5 Depression Screening Interpretation: Positive Depression Screening Follow-up: Existing condition and Community Mental Health Worker F/U Depression Screening Done: Yes 09774 - PHQ-9 Billing: Yes Source: Developed by Drs. Satnam Mchugh, Isabella Jackson, Brain Spence and colleagues, with an educational luciana from [employer]. Thrive Questionnaire Date Thrive assessed: 01/14/25 I am a: Patient What is your living situation today?: I have a steady place to live Within the past 12 months, did the food you bought not last and you didn't have the money to get more?: I choose not to answer this question Within the past 12 months, did you worry whether your food would run out before you got money to buy more?: Never true Do you have trouble paying for medicines?: No Do you have trouble getting transportation to medical appointments?: No Do you have trouble paying your heating and electricity bill?: Yes Do you have trouble taking care of your child, family member or friend?: No Do you have trouble with day-to-day activities such as bathing, preparing meals, shopping, managing finances, etc.?: No Are you currently unemployed and looking for a job?: No Are you interested in more education?: No Please select the resources that you would like help with: None Currently or been in a relationship where the following occur: No concerns reported THRIVE Score: 1 AUDIT C Alcohol Use Questionnaire (AUDIT-C) 1. How often do you have a drink containing alcohol?: Never 3. How often do you have six or more drinks on one occasion?: Never Total Score: 0 Score Reviewed/Action Taken: Yes PRINCESS-7 AMB Questionnaire PRINCESS-7 Date PRINCESS - 7 assessed: 01/14/25 Feeling nervous, anxious, or on edge: 3 = Nearly every day Not being able to stop or control worryin = More than half the days Worrying too much about different things: 3 = Nearly every day Trouble relaxin = More than half the days Being so restless that it is hard to sit still: 3 = Nearly every day Becoming easily annoyed or irritable: 3 = Nearly every day Feeling afraid as if something awful might happen: 1 = Several days Total PRINCESS-7 score (0-4 normal; 5-9 mild; 10-14 moderate; 15-21 severe): 17 Source: Developed by Drs. Satnam Mchugh, Isabella Jackson, Brain Spence and colleagues, with an educational luciana from [employer]. Review of Systems Const Denies chills, Denies fatigue, Denies fever(s), Denies headache(s), Denies malaise and Denies weakness Eyes Denies blurry vision, Denies change in vision, Denies irritation and Denies itchy eyes ENT Denies dysphagia, Denies dizziness, Denies otalgia, Denies headache(s), Denies nasal congestion, Denies neck pain, Denies odynophagia and Denies sore throat Card Denies chest pain, Denies rapid heart rate, Denies irregular heart rhythm, Denies palpitations and Denies dyspnea Resp Denies chest congestion, Denies cough, Denies dyspnea and Denies wheezing GI Denies abdominal pain, Denies bloating, Denies constipation, Denies dysphagia, Denies heartburn, Denies diarrhea, Denies nausea, Denies odynophagia and Denies vomiting Denies hematuria, Denies difficulty urinating, Denies dysuria, Denies urinary frequency and Denies urinary urgency Musc Denies back pain, Reports arthralgias (minimal residual pain in the right wrist), Denies joint swelling, Denies muscle weakness and Denies neck pain Skin/Breast Denies change in pigmentation, Denies lesions, Denies rash and Denies unusual bruising Neuro Denies dizziness, Denies headache(s), Denies paresthesias and Denies weakness Psych Details: (+) issues with anger management Reports irritability Endo Denies fatigue and Denies palpitations Aller/Immun Denies itchy eyes and Denies wheezing Physical exam (Primary Care) Vital Signs: Last Vital Signs Pulse 97 01/14/25 13:48 BP 150/100 H 01/14/25 13:48 Pulse Ox 98 01/14/25 13:48 Oxygen Delivery Method Room Air 01/14/25 13:48 BMI result Body Mass Index 42.7 Tobacco/Smoking Status: Tobacco use Status Tobacco use date assessed 01/14/25 01/14/25 14:00 Patient Tobacco Use Status Former Tobacco user 01/14/25 14:00 Tobacco use type Cigarette 01/14/25 14:00 e-Cigarette/Vaping Use Never Used 01/14/25 14:00 PHQ-9: PHQ-9 Score PHQ-9: Total score 5 01/14/25 14:19 Depression Screening Interpretation: Positive Depression Screening Follow-up: Existing condition and Community Mental Health Worker F/U Thrive Assessment: Date of Thrive Assessment Date Thrive assessed 01/14/25 01/14/25 14:00 Currently or been in a relationship where the following occur: No concerns reported Const General: no acute distress, alert and awake Orientation/consciousness: patient oriented x3 HENMT Head: Yes normocephalic and Yes atraumatic Ears: external ears normal, TM's normal bilaterally and EAC's normal General nose exam: No nasal discharge present Face and sinus: Yes normal facial exam and Yes sinuses nontender Teeth and gingiva: dentition normal Throat: Yes posterior oropharynx normal and Yes tonsils normal (no TP congestion) Eyes Eyelids: Yes eyelids normal Conjunctivae: conjunctivae normal Pupils: Equal, round and reactive pupils present EOM: EOMs intact bilaterally Neck Neck: Yes no lymphadenopathy and Yes supple Thyroid: Thyroid normal Resp Auscultation: clear to auscultation bilaterally, no rales and no wheezes Cardio Rate: regular rate Rhythm: regular rhythm Heart sounds: no murmurs GI Palpation (GI): Soft to palpation, nontender and No hepatosplenomegaly present Auscultation: normal bowel sounds General: Yes no CVA tenderness Back/Spine/Pelvis Back: no CVA tenderness Thoracic/Lumbar Spine: thoracic and lumbar spine normal to inspection Skin Lesions: no lesions Rashes: no rashes Neuro General: patient oriented x3, moves all extremities, no focal motor deficits and CN's II-XI intact bilaterally Cranial nerves: Yes Equal, round and reactive pupils present Cognition (Neuro): normal cognition Gait exam (Neuro): Normal gait present Extrem General: Yes no clubbing, cyanosis or edema Right upper extremity: wrist Details: tenderness (minimally) and normal ROM Coding Level of Care Code Est Pt Prev Care 40-64y(54630) Diagnoses Annual physical exam Z00.00 Essential hypertension I10 Dyslipidemia E78.5 Obstructive sleep apnea G47.33 Vitamin D deficiency E55.9 Degeneration of intervertebral disc of lumbar region with discogenic back pain M51.360 Disc-related pain type: discogenic back pain only Irritability and anger R45.4 Closed nondisplaced fracture of styloid process of right ulna, sequela S52.614S Encounter type: sequela Fracture type: closed Fracture alignment: nondisplaced Anxiety F41.9 Morbid obesity with BMI of 40.0-44.9, adult E66.01; Z68.41 Colon cancer screening Z12.11 Additional Codes PHQ-9 - 60194 - PHQ-9 Billing: Yes ([id number]) Assessment & Plan Assessment & Plan (1) Annual physical exam: Code(s): Z00.00 - Encounter for general adult medical examination without abnormal findings Category: Medical Plan: Check labs He is also due for screening colonoscopy and will be referred to GI for this (2) Essential hypertension: Code(s): I10 - Essential (primary) hypertension Category: Medical Plan: Reinforced low sodium diet - goal is systolic BP of 120 mm or less Continue Losartan 50 mg QD for now but advised that we may need to adjust his dose further if his BP does not improve significantly at his next visit Patient admits that he sometimes forgets take his blood pressure medication Patient is reminded to continue monitoring his blood pressure regularly (3) Dyslipidemia: Code(s): E78.5 - Hyperlipidemia, unspecified Category: Medical Plan: Reinforced low cholesterol diet Will recheck his labs and fasting lipids ROBERTO for follow up (4) Obstructive sleep apnea: Comment: SEVERE OBSTRUCTIVE SLEEP APNEA UNKNOWN SINCE 2011. HAS BEEN USING CPAP REGULARLY. CURRENTLY HIS CPAP DEVICE IS OLD AND NOT ABLE TO TRANSMIT THE COMPLIANCE DATA. PATIENT NEEDS A NEW, UPDATED WERE BECK OF CPAP DEVICE. SETTING WILL BE : FULLFACE MASK WITH PRESSURE OF 12 CM. Code(s): G47.33 - Obstructive sleep apnea (adult) (pediatric) Category: Medical Plan: Continue using his CPAP device when sleeping at night Follow up with Sleep Medicine as scheduled (5) Vitamin D deficiency: Code(s): E55.9 - Vitamin D deficiency, unspecified Category: Medical Plan: Will recheck his vitamin-D level for follow-up (6) Lumbar degenerative disc disease: Code(s): M51.36 - Other intervertebral disc degeneration, lumbar region Category: Medical Qualifiers: Disc-related pain type: discogenic back pain only Qualified Code(s): M51.360 - Other intervertebral disc degeneration, lumbar region with discogenic back pain only Plan: Eeinforced activity and weight-lifting restrictions to avoid aggravating his low back pain Lumbar spine x-rays last done in 2018 revealed (+) mild degenerative changes at L4-L5 and L5-S (7) Irritability and anger: Code(s): R45.4 - Irritability and anger Category: Medical Plan: Per request, we will refer him to Psychiatry for further evaluation and management (8) Fracture of right ulnar styloid: Code(s): S52.611A - Displaced fracture of right ulna styloid process, initial encounter for closed fracture Category: Medical Qualifiers: Encounter type: sequela Fracture type: closed Fracture alignment: nondisplaced Qualified Code(s): S52.614S - Nondisplaced fracture of right ulna styloid process, sequela Plan: Sustained in November 2024 when his hand and wrist got caught in the door of his truck X-rays of the right wrist revealed a nondisplaced ulnar styloid fracture He was seen by Orthopedics and was advised to manage it conservatively with no surgery indicated Patient states that his right wrist is mostly healed at this time with little to no difficulty with ROM or with daily activities Follow-up with orthopedics as scheduled or as needed (9) Anxiety: Code(s): F41.9 - Anxiety disorder, unspecified Category: Medical Plan: Continue Sertraline 25 mg QD (10) Morbid obesity with BMI of 40.0-44.9, adult: Code(s): E66.01 - Morbid (severe) obesity due to excess calories; Z68.41 - Body mass index [BMI] 40.0-44.9, adult Category: Medical Plan: Reinforced activity and weight-lifting restrictions He has failed bariatric surgery (has sleeve gastrectomy in 2019) and has been advised to try checking back with Dr. Pavon for further recommendations (11) Colon cancer screening: Code(s): Z12.11 - Encounter for screening for malignant neoplasm of colon Category: Medical Plan: He is due to start colon cancer screening - will refer him to GI for his screening colonoscopy Plan Follow-up in 4 months Orders: Orders Complete Blood Count Auto Diff 01/14/25 D64.9 - Anemia, unspecified, Z00.00 - Encounter for general adult medical examination without abnormal findings Lipid Panel 01/14/25 E78.00 - Pure hypercholesterolemia, unspecified, Z00.00 - Encounter for general adult medical examination without abnormal findings TSH reflex Free T4 01/14/25 E78.00 - Pure hypercholesterolemia, unspecified, Z00.00 - Encounter for general adult medical examination without abnormal findings Comprehensive [place]. Panel Fast 01/14/25 E78.00 - Pure hypercholesterolemia, unspecified, Z00.00 - Encounter for general adult medical examination without abnormal findings UA CC w/rflx Micro + Cult 01/14/25 R30.0 - Dysuria, Z00.00 - Encounter for general adult medical examination without abnormal findings Vitamin D 25-OH Total 01/14/25 E55.9 - Vitamin D deficiency, unspecified, Z00.00 - Encounter for general adult medical examination without abnormal findings Vitamin B12 and Folate 01/14/25 E53.8 - Deficiency of other specified B group vitamins, Z00.00 - Encounter for general adult medical examination without abnormal findings Prostate Specific Antigen Scr 01/14/25 Z00.00 - Encounter for general adult medical examination without abnormal findings Referrals Psychiatry Referral R45.4 - Irritability and [facility] Gastroenterology Referral Z12.11 - Encounter for screening for malignant neoplasm of colon
--- OUTSIDE RECORDS SUMMARY | 2025-01-14 14:47 | XMS_ITS | Clinical Summary ---
Author Organization [facility] Address [address] [place] [address] Care Team Providers Care Construction Checker Name Role Phone Delilah Saez MD Primary [...] complete this topic RSV Immunization Patients Un solagne 20 months Aged Out No longer eligible b ased on patient's age to complete this topic Varicella Vaccines Aged Out No longer eligible based on patient's age to complete this topic Care Teams Construction Checker Relationship Specialty Start Date End Date Delilah Saez MD [address] [place] [address] PCP - General Internal Medicine 08/30/16
== END 2025-01-14 14:34 | disposition home or self-care (01) ==
LOC: HO.HMCH 13:46
PROVIDERS: PCP Internal Medicine; Visit Provider Internal Medicine
DX: Z00.00 Encounter for general adult medical examination without abnormal findings (principal); I10 Essential (primary) hypertension; E78.5 Hyperlipidemia, unspecified; G47.33 Obstructive sleep apnea (adult) (pediatric); E55.9 Vitamin D deficiency, unspecified; M51.360 Other intervertebral disc degeneration, lumbar region with discogenic back pain only; R45.4 Irritability and anger; S52.61 Fracture of ulna styloid process; F41.9 Anxiety disorder, unspecified; E66.01 Morbid (severe) obesity due to excess calories; Z68.41 Body mass index [BMI] 40.0-44.9, adult; Z12.11 Encounter for screening for malignant neoplasm of colon

== ENCOUNTER → 2025-01-14 13:45 | Outpatient (BNVA) | payer BC, SELFPAY | PROVIDERS: PCP Internal Medicine; Visit Provider Internal Medicine | DX: Z00.00 Encounter for general adult medical examination without abnormal findings (principal); I10 Essential (primary) hypertension; E78.5 Hyperlipidemia, unspecified; G47.33 Obstructive sleep apnea (adult) (pediatric); E55.9 Vitamin D deficiency, unspecified; M51.360 Other intervertebral disc degeneration, lumbar region with discogenic back pain only; R45.4 Irritability and anger; S52.61 Fracture of ulna styloid process; F41.9 Anxiety disorder, unspecified; E66.01 Morbid (severe) obesity due to excess calories; Z68.41 Body mass index [BMI] 40.0-44.9, adult | CPT/HCPCS: 96127 ==